=== PATIENT | female | born 1965 | race Caucasian/White ===

== ENCOUNTER 2016-10-29 14:26 | Emergency (ER) | payer OTHER ==
[2016-10-29 14:34] VITALS: BMI 21.4
--- NOTE | 2016-10-29 14:57 | ED PDOC ---
Arrival/HPI - General Chief Complaint: Medical Clearance Time Seen by Provider: 10/29/16 14:44 Historian: Patient - History of Present Illness Narrative History of Present Illness (Text): 10/29/16 14:59 51 year old female, aox4, pmh including chronic migraine, allergic to sulfa medication, bib for overdose 4 tablets of percocet 7.5/325 at home. Pt. stated that she has been having headache for the past 3 days, been taking percocets to controlled the headache, took total of 4 tablets today (2 tablets on 07:30am, another 2 tablets on 10:30am plus additional 1000mg of tylenol in between) and went to sleep on the cough, found by mother sleeping and waking up with people surrounding her. Pt. stated that she is not depress, not homicidal or suicidal ideation, no auditory or visual hallucinations. Pt. has a bottle of percocet 7.5/325 with 76 tablets which filled 6 days ago on 10/23/2016, 24 tablets shortage. Past Medical History - Provider Review Nursing Documentation Reviewed: Yes - Infectious Disease Hx of Infectious Diseases: None - Neurological Hx Migraine: Yes - Psychiatric Hx Substance Use: No Family/Social History - Physician Review Nursing Documentation Reviewed: Yes Family/Social History: Unknown Family HX Smoking Status: Never Smoked Hx Alcohol Use: No Hx Substance Use: No Allergies/Home Meds Allergies/Adverse Reactions: Allergies sulfamethoxazole [From Septra] Allergy (Verified 10/29/16 14:41) RASH trimethoprim [From Septra] Allergy (Verified 10/29/16 14:41) RASH Home Medications: Home Meds Medication Instructions Recorded Confirmed Oxycodone HCl/Acetaminophen 1 tab PO QID PRN 10/29/16 10/29/16 [Oxycodone-Acetaminophen 5-325] Rizatriptan Benzoate [Maxalt] 10 mg PO TID PRN 10/29/16 10/29/16 Topiramate [Topamax] 25 mg PO HS 10/29/16 10/29/16 Topiramate [Topamax] 50 mg PO DAILY 10/29/16 10/29/16 Review of Systems - Review of Systems Constitutional: absent: Fatigue, Fevers Eyes: absent: Vision Changes ENT: absent: Hearing Changes Respiratory: absent: SOB, Cough Cardiovascular: absent: Chest Pain Gastrointestinal: absent: Abdominal Pain, Diarrhea, Nausea, Vomiting Skin: absent: Rash, Pruritis, Skin Lesions Neurological: absent: Headache, Dizziness Psychiatric: absent: Anxiety, Depression, Suicidal Ideation Physical Exam Vital Signs Reviewed: Yes Vital Signs Temp Pulse Resp BP Pulse Ox 10/29/16 18:04 99 H 19 169/66 H 100 10/29/16 17:07 91 H 10/29/16 15:08 98.9 F 10/29/16 14:33 113 H 20 193/90 H 96 Blood Pressure: Hypertensive Pulse: Tachycardic Respiratory Rate: Normal Appearance: Positive for: Well-Appearing, Non-Toxic, Comfortable Pain Distress: None Mental Status: Positive for: Alert and Oriented X 3 - Systems Exam Head: Present: Atraumatic, Normocephalic. No: Tenderness, Contusion, Swelling, Ecchymosis, Abrasion, Laceration, Other Pupils: Present: PERRL, Pinpoint Extroacular Muscles: Present: EOMI Conjunctiva: Present: Normal Mouth: Present: Moist Mucous Membranes Neck: Present: Normal Range of Motion, Trachea Midline. No: MIDLINE TENDERNESS , Paraspinal Tenderness, Lymphadenopathy Respiratory/Chest: Present: Clear to Auscultation, Good Air Exchange. No: Respiratory Distress, Accessory Muscle Use Cardiovascular: Present: Regular Rate and Rhythm, Normal S1, S2. No: Murmurs Abdomen: Present: Normal Bowel Sounds. No: Tenderness, Distention, Peritoneal Signs Back: Present: Normal Inspection. No: CVA Tenderness, Midline Tenderness, Paraspinal Tenderness, Pain with Leg Raise, Decubitus Ulcer Upper Extremity: Present: Normal Inspection. No: Cyanosis, Edema Lower Extremity: Present: Normal Inspection. No: Edema Neurological: Present: GCS=15, Speech Normal, Motor Func Grossly Intact, Gait Normal, Memory Normal, Other (no focal neurological deficits. ) Skin: Present: Warm, Dry, Normal Color. No: Rashes Psychiatric: Present: Alert, Oriented x 3, Normal Insight, Normal Concentration Medical Decision Making ED Course and Treatment: 10/29/16 15:03 -labs/ua/uds -ekg -CT head -poison control -one on one -PES Anaise called and discussed, will come to evaluate -court monitor -observe and reassess 10/29/16 15:12 -EKG: NSR @ 88 BPM, no ST elevation or depression, no T wave inversion, prolonged QT -CT head: no acute findings -Poison control suggest labs -PES suggest labs for tylenol and LFT level -Labs show: show no acute findings except 10/29/16 15:59 -Acetaminophen noted to be 29 (total of 2300mg tylenol today, initial dose 07: 30am and last dose 10:30am), discussed with Dr. Fisher and discussed in detail including the patient is clear from psychiatric PES Karina, Dr. Fisher suggest to repeat the tylenol level now. -There is no indication of treatment with antidote at this time. 10/29/16 16:52 -Upon reevaluation, pt. is awake and alert, tylenol level from 29 to 17 now. -Pt. is clear from the psychiatric point of view. -poison control follow up for clearance and agreed to be discharge home. -Pt. is medically clear as well. I discussed with Dr. Fisher including the tachycardic which Dr. Fisher stated that this can be performed outpatient with marketing content coordinator follow up, and he suggest to discharge home. -Pt. is vitally stable, will discharge home. -Discharge home with education on stop taking percocets or tylenol within 24 hours, follow up with your own pmd and neurologist within 2 days, return to the ER for any new or worsening signs or symptoms. - Lab Interpretations Lab Results: 10/29/16 15:15 10/29/16 15:15 Lab Results 10/29/16 16:20: Acetaminophen 17.0 10/29/16 16:12: Urine Opiates Screen Positive H, Urine Methadone Screen Negative , Ur Barbiturates Screen Negative, Ur Phencyclidine Scrn Negative, Ur Amphetamines Screen Negative, U Benzodiazepines Scrn Negative, U Oth Cocaine Metabols Negative, U Cannabinoids Screen Negative 10/29/16 16:12: Urine Color Yellow, Urine Appearance Clear, Urine pH 6.0, Ur Specific [place] 1.025, Urine Protein Negative, Urine Glucose (UA) Negative, Urine Ketones Negative, Urine Blood Negative, Urine Nitrate Negative, Urine Bilirubin Negative, Urine Urobilinogen 0.2, Ur Leukocyte Esterase Negative 10/29/16 15:15: Alcohol, Quantitative < 10 10/29/16 15:15: Salicylates < 1 L, Acetaminophen 29.0 H, Valproic Acid < 10 L 10/29/16 15:15: Sodium 142, Potassium 3.6, Chloride 108 H, Carbon Dioxide 22, Anion Gap 16, BUN 17, Creatinine 0.9, Est GFR ( Amer) > 60, Est GFR (Non- Af Amer) > 60, Random Glucose 176 H, Calcium 8.3 L, Total Bilirubin 0.5, AST 35 , ALT 19, Alkaline Phosphatase 50, Total Protein 6.8, Albumin 4.1, Globulin 2.7 , Albumin/Globulin Ratio 1.5 10/29/16 15:15: WBC 13.6 H, RBC 3.86, Hgb 11.8 L, Hct 35.5 L, MCV 92.0, MCH 30.6 , MCHC 33.2, RDW 13.2, Plt Count 219, MPV 11.0, Gran % 71.9 H, Lymph % (Auto) 21.9 L, [place] % (Auto) 4.5, Eos % (Auto) 1.4 L, Baso % (Auto) 0.3, Gran # 9.78 H , Lymph # 3.0, [place] # 0.6, Eos # 0.2, Baso # 0.04 I have reviewed the lab results: Yes - RAD Interpretation Radiology Orders: 10/29/16 14:59 HEAD W/O CONTRAST [CT] Stat -CT head: no acute findings -Chest x-ray: Chemical Plant Worker: Radiologist - EKG Interpretation EKG Interpretation (Text): 10/29/16 15:11 NSR @ 88 BPM, no ST elevation or depression, no T wave inversion, prolonged QT Interpreted by ED Physician: Yes Type: 12 lead EKG - Medication Orders Current Medication Orders: Discontinued Medications Sodium Chloride (Sodium Chloride 0.9%) 1,000 mls @ 999 mls/hr IV .Q1H1M STA Stop: 10/29/16 15:58 Last Admin: 10/29/16 15:24 Dose: 999 mls/hr - PA / PAINTER [employer] / Resident Statement /DO has reviewed & agrees with the documentation as recorded. Disposition/Present on Arrival - Present on Arrival Any Indicators Present on Arrival: No History of DVT/PE: No History of Uncontrolled Diabetes: No Urinary Catheter: No History of Decub. Ulcer: No History Surgical Site Infection Following: None - Disposition Have Diagnosis and Disposition been Completed?: Yes Diagnosis: General medical examination Disposition: HOME/ ROUTINE Disposition Time: 16:58 Patient Plan: Discharge Condition: GOOD Additional Instructions: -Discharge home with education on stop taking percocets or tylenol within 24 hours, follow up with your own pmd and neurologist within 2 days, return to the ER for any new or worsening signs or symptoms. Referrals: PCP,NO [Primary Care Provider] - Follow up with primary Elle Barbosa MD [Staff Provider] - Follow up with primary Forms: [employer] (Danish), WORK NOTE
[2016-10-29] MEDS ORDERED: Sodium Chloride 0.9% 1,000 ML IV STA (14:58)
[2016-10-29 15:17] VITALS: TEMP 98.9
[2016-10-29 15:27] LABS: BASO # 0.04 K/mm3 (0.0-2.0); BASO % 0.3 % (0.0-3.0); EOS # 0.2 (0.0-0.7); EOS % 1.4 % (1.5-5.0); GRAN # 9.78 (1.4-6.5); GRAN % 71.9 % (50.0-68.0); HEMATOCRIT 35.5 % (36.0-48.0); LYMPH % 21.9 % (22.0-35.0); MEAN CORPUSCULAR HEMOGLOBIN 30.6 pg (25.0-35.0); MEAN CORPUSCULAR HGB CONC 33.2 g/dl (31.0-37.0); MONO # 0.6 (0.1-0.6); MONO % 4.5 % (1.0-6.0); RED CELL DISTRIBUTION WIDTH 13.2 % (11.5-14.5); WHITE BLOOD COUNT 13.6 10^3/ul (4.5-11.0)
[2016-10-29 15:44] LABS: ALB/GLOB RATIO 1.5 (1.1-1.8); ALKALINE PHOSPHATASE 50 U/L (38-126); ALT/SGPT 19 U/L (7-56); AST/SGOT 35 U/L (14-36); BILIRUBIN,TOTAL 0.5 mg/dL (0.2-1.3); BLOOD UREA NITROGEN 17 mg/dL (7-21); CALCIUM 8.3 mg/dL (8.4-10.5); CARBON DIOXIDE 22 mmol/L (21-33); CHLORIDE 108 mmol/L (98-107); GFR AFRICAN-AMERICAN > 60; GLUCOSE,RANDOM 176 mg/dL (70-110); POTASSIUM 3.6 mmol/L (3.6-5.0); SODIUM 142 mmol/L (132-148); TOTAL PROTEIN 6.8 g/dL (5.8-8.3)
--- NOTE | 2016-10-29 15:46 | CT ---
PROCEDURE: CT HEAD WITHOUT CONTRAST. HISTORY: headache x 3 days, found unconscious?? COMPARISON: None available. TECHNIQUE: Axial computed tomography images were obtained through the head/brain without intravenous contrast. Radiation dose: Total exam DLP = 690 mGy-cm. This CT exam was performed using one or more of the following dose reduction techniques: Automated exposure control, adjustment of the mA and/or kV according to patient size, and/or use of iterative reconstruction technique. FINDINGS: HEMORRHAGE: No intracranial hemorrhage. BRAIN: No mass effect or edema. No atrophy or chronic microvascular ischemic changes. VENTRICLES: Unremarkable. No hydrocephalus. CALVARIUM: Unremarkable. PARANASAL SINUSES: Unremarkable as visualized. No significant inflammatory changes. MASTOID AIR CELLS: Unremarkable as visualized. No inflammatory changes. OTHER FINDINGS: None. IMPRESSION: No acute findings
[2016-10-29 15:50] LABS: VALPROIC ACID < 10 ug/mL (50.0-100.0)
[2016-10-29 16:47] LABS: URINE BILIRUBIN NEGATIVE (NEGATIVE); URINE BLOOD NEGATIVE (NEGATIVE); URINE GLUCOSE (UA) NEGATIVE (NEGATIVE); URINE KETONE NEGATIVE (NEGATIVE); URINE LEUKOCYTE ESTERASE NEGATIVE Leu/uL (NEGATIVE); URINE PROTEIN NEGATIVE mg/dL (<30 mg/dL); URINE UROBILINOGEN 0.2 E.U./dL (<1 E.U./dL)
[2016-10-29 16:49] LABS: URINE APPEARANCE CLEAR (CLEAR); URINE COLOR YELLOW (YELLOW)
[2016-10-29 18:05] VITALS: BP 169/66; PULSE 99; RESP 19; O2SAT 100
--- NOTE | 2016-10-29 20:22 | CARD ---
APPROVED REPORT EKG Measurement Heart [id number] <Conclusion> Normal sinus rhythm Possible Left atrial enlargement Left ventricular hypertrophy Nonspecific ST and T wave abnormality Prolonged QT Abnormal ECG
== END 2016-10-29 18:20 | disposition home or self-care (01) ==
LOC: ED 14:26
DX: Z00.00 Encounter for general adult medical examination without abnormal findings (principal)
CPT/HCPCS: 70450; 80053; 80164; 80320; 80324; 80329; 80345; 80346; 80349; 80353; 80358; 80361; 81003; 83992; 85025; 93005; 99283; J7040

== ENCOUNTER 2017-11-27 19:56 | Inpatient (IN) | payer BC, OTHER ==
--- NOTE | 2017-11-27 20:20 | ED PDOC ---
Arrival/HPI - General Historian: Patient EM Caveat: Altered Mental Status - History of Present Illness Narrative History of Present Illness (Text): 11/27/17 20:14 Pt is a 52 yo F with pmhx of migraines who comes to the ED for R sided leg numbness and possible fall. She states that she woke up from a nap and is confused as to whether she woke up on the cricket coach or on the floor. She also states that she then tried to stand up but fell because her R leg gave out from under her. She states she does not recall hitting her head, but when she called over her mother for assistance to get up from fall the mother, her mother noted some blood on the R side of her head. Her mother called the EMS and she presented. She states she is still feeling weakness in the R leg, and is having R groin pain. Pt is confused as to exactly happened and when. Time/Duration: Prior to Arrival Symptom Onset: Sudden Symptom Course: Unchanged <Adriana Lopez - Last Filed: 11/28/17 05:25> - Critical Care Critical Care Minutes: 45 minutes <Wilton Hurst - Last Filed: 12/06/17 12:18> - General Time Seen by Provider: 11/27/17 19:59 Past Medical History - Provider Review Nursing Documentation Reviewed: Yes - Infectious Disease Hx of Infectious Diseases: None - Cardiac Hx Cardiac Disorders: No Hx Hypertension: No - Pulmonary Hx Tuberculosis: No - Neurological Hx Migraine: Yes - Hematological/Oncological Hx Cancer: No - Genitourinary/Gynecological Hx Sexually Transmitted Diseases: No - Psychiatric Hx Substance Use: No <Adriana Lopez - Last Filed: 11/28/17 05:25> - Provider Review Nursing Documentation Reviewed: Yes <Wilton Hurst - Last Filed: 12/06/17 12:18> Family/Social History - Physician Review Nursing Documentation Reviewed: Yes Family/Social History: No Known Family HX Smoking Status: Never Smoked Hx Alcohol Use: No Hx Substance Use: No <Adriana Lopez - Last Filed: 11/28/17 05:25> - Physician Review Nursing Documentation Reviewed: Yes Family/Social History: No Known Family HX <Wilton Hurst - Last Filed: 12/06/17 12:18> Allergies/Home Meds <Adriana Lopez - Last Filed: 11/28/17 05:25> <Wilton Hurst - Last Filed: 12/06/17 12:18> Allergies/Adverse Reactions: Allergies sulfamethoxazole [From ] Allergy (Verified 10/29/16 14:41) RASH trimethoprim [From Octra] Allergy (Verified 10/29/16 14:41) RASH Home Medications: Home Meds Medication Instructions Recorded Confirmed RX: Oxycodone HCl/Acetaminophen 1 tab PO QID PRN 10/29/16 11/28/17 [Oxycodone-Acetaminophen 5-325] RX: Topiramate [Topamax] 100 mg PO HS 10/29/16 12/03/17 RX: Amitriptyline [Elavil] 20 mg PO HS 11/28/17 12/03/17 RX: Naratriptan HCl [Amerge] 2.5 mg PO DAILY PRN 11/28/17 12/03/17 Review of Systems - Physician Review All systems were reviewed & negative as marked: Yes - Review of Systems Systems not reviewed;Unavailable: Altered Mental Status <Adriana Lopez - Last Filed: 11/28/17 05:25> Physical Exam Vital Signs Reviewed: Yes Vital Signs Pulse Resp BP Pulse Ox 11/27/17 19:57 94 H 18 126/67 97 Temperature: Afebrile Blood Pressure: Normal Pulse: Regular Respiratory Rate: Normal Appearance: Positive for: Well-Appearing, Non-Toxic, Comfortable Pain Distress: None Mental Status: Positive for: Alert and Oriented X 3 - Systems Exam Head: Present: Atraumatic, Normocephalic Pupils: Present: PERRL Extroacular Muscles: Present: EOMI Conjunctiva: Present: Normal Ears: Present: NORMAL TM Mouth: Present: Moist Mucous Membranes Pharnyx: Present: Normal Neck: Present: Normal Range of Motion Respiratory/Chest: Present: Clear to Auscultation, Good Air Exchange. No: Respiratory Distress, Accessory Muscle Use Cardiovascular: Present: Regular Rate and Rhythm, Normal S1, S2. No: Murmurs Abdomen: No: Tenderness, Distention, Peritoneal Signs Back: Present: Normal Inspection Upper Extremity: Present: Normal Inspection. No: Cyanosis, Edema Lower Extremity: Present: Normal Inspection, NORMAL PULSES. No: Edema, CALF TENDERNESS, Maryellen's Sign, Tenderness, Swelling Neurological: Present: GCS=15, CN II-XII Intact, Speech Normal, Normal Sensory Function, Norm Deep Tendon Reflexes, Other (decreased strength right lower leg ? muscular) Skin: Present: Warm, Dry, Normal Color. No: Rashes Psychiatric: Present: Alert <Wilton Hurst - Last Filed: 12/06/17 12:18> Medical Decision Making ED Course and Treatment: 11/27/17 20:20 Pt is a 52 yo F with pmhx detailed above who comes in for R sided numbness and possible fall. - CT head - Discussed case with neurologist Dr. Jesus who states that the pt is not a candidate for TPA at this time because of low stroke risk using NIHSS and possibility of complicated migraine. Awaiting CT result 11/27/17 23:39 - CT head was reported by radiologist to have no acute intracranial abnormality - CK noted to be 35,000. Will give bolus of fluid - K+ noted to be elevated, began pt on insulin, D50, albuterol, ca gluconate, and kayexalate - Spoke to Dr. Mcgill media sales representative who accepted pt to ICU 11/27/17 23:41 - RAD Interpretation Narrative RAD Interpretations (Text): 11/27/17 20:35 Radiologist Report: No acute finding. 11/27/17 20:49 CXR: No acute process Manager Perioperative: Radiologist - EKG Interpretation EKG Interpretation (Text): 11/27/17 20:32 NSR @ 94 bpm [address] enlargement No ST-T wave changes Interpreted by ED Physician: Yes Type: 12 lead EKG <Adriana Lopez - Last Filed: 11/28/17 05:25> ED Course and Treatment: 11/27/17 21:02 Patient is a 52 year old female presenting to Emergency Department complaining of right sided numbness. In agreement with resident note. Patient was seen and evaluated with resident, came up with plan and treatment together. I have discussed the case with Dr. Jesus, management was outlined in full as referenced in the resident's note. 11/27/17 22:[address] Mcgill, media sales representative, who will evaluate patient for possible unit admit. 11/27/17 23:[address] Wyatt, who is aware and agrees with the Emergency Department management plan to admit patient to the unit and requested Dr. Ji, renal, and Dr. Jesus, neuro for consult. 11/28/17 00:16 ICU resident was called for Dr. Mcgill to evaluate patient in the Emergency room. - RAD Interpretation Radiology Orders: 11/27/17 20:13 HEAD W/O (CODE STROKE) [CT] Stat CHEST ONE VIEW [RAD] Stat - Medication Orders Current Medication Orders: Sodium Chloride (Sodium Chloride 0.9%) 1,000 mls @ 100 mls/hr IV .Q10H ADY Discontinued Medications Aspirin (Aspirin) 325 mg PO STAT STA Stop: 11/27/17 20:49 <Wilton Hurst - Last Filed: 12/06/17 12:18> NIHSS Scale ([place]) Time Performed: 20:10 - How Severe is the Stoke Baseline Level of Consciousness: 0=Alert LOC to Questions: 0=Both comments correct LOC to commands: 0=Obeys both correctly Best Gaze: 0=Normal Visual: 0=No visual loss Facial: 0=Normal Motor Arm - Left: 0=No drift Motor Arm - Right: 0=No drift Motor Leg - Left: 0=No drift Motor Leg - Right: 2=Falls before 5 sec Limb Ataxia: 0=Absent Sensory: 0=Normal Best Language: 0=No aphasia Dysarthia: 0=Normal articulation Extinction & Inattention (Neglect): 0=Normal, no object Score: 2 Risk Level: Minor Stroke Risk <Adriana Lopez - Last Filed: 11/28/17 05:25> rTPA Inclusion/Exclusion - Refusal of Treatment Patient Refused Treatment: No - Inclusion Criteria for Altepase Patient is 18 years or Older: Yes The Clinical Diagnosis of Ischemic Stroke That is Causing a Potentially Disabling Neurological Deficit: No Time of Onset is Well Established to be Less Than 270 Minute Before Treatment Would Begin: Yes Risk/Benefit Discussed With Patient/Family Member Present: Yes - Exclusion Criteria for Altepase Uncontrolled Hypertension at Time of Treatment (Systolic BP above 185 or Diastolic BP above 110 mmHg): No Active Internal Bleeding: No Known Bleeding Diathesis Including but Not Limited to: Platelets Below 1 00,000/mm,PTT Above 40 sec After Heparin Use, Current Use of Oral Anitcoagulant With INR Greater Than 1.7 or PT Greater Than 15 secs: No Evidence of an Intracranial Hemorrhage: No Evidence of Major Acute Infarct With Signs Greater Than 1/3 MCA Territory: No Suspicion of Subarachnoid Hemorrhage on Pretreatment Evaluation Even if CT Head Negative For Hemorrhage: No - Warning to TPA With Conditions Following Conditions Weighed Against Anticipated Benefit: Yes Condition: Stroke Serevity Too Mild <Adwoa Lopezd - Last Filed: 11/28/17 05:25> - Inclusion Criteria for Altepase Patient is 18 years or Older: Yes <ArisWilton - Last Filed: 12/06/17 12:18> - PA / GOLF CART REPAIRER / Resident Statement / has reviewed & agrees with the documentation as recorded. MD/DO has examined the patient and agrees with the treatment plan. - Scribe Statement The provider has reviewed the documentation as recorded by the Hao Flores All medical record entries made by the Nobleibyamil were at my direction and personally dictated by me. I have reviewed the chart and agree that the record accurately reflects my personal performance of the history, physical exam, medical decision making, and the department course for this patient. I have also personally directed, reviewed, and agree with the discharge instructions and disposition. <ArisWilton - Last Filed: 12/06/17 12:18> Disposition/Present on Arrival - Present on Arrival Any Indicators Present on Arrival: No History of DVT/PE: No History of Uncontrolled Diabetes: No Urinary Catheter: No History of Decub. Ulcer: No History Surgical Site Infection Following: None - Disposition Have Diagnosis and Disposition been Completed?: Yes Disposition Time: 23:39 Patient Plan: Admission, ICU <Sae Lopezmad - Last Filed: 11/28/17 05:25> - Present on Arrival Any Indicators Present on Arrival: No History of DVT/PE: No History of Uncontrolled Diabetes: No Urinary Catheter: No History of Decub. Ulcer: No History Surgical Site Infection Following: None - Disposition Have Diagnosis and Disposition been Completed?: Yes <ArisWilton - Last Filed: 12/06/17 12:18> - Disposition Diagnosis: Rhabdomyolysis, Acute kidney failure, Renal insufficiency Disposition: HOSPITALIZED Condition: IMPROVED
[2017-11-27 21:20] LABS: BASO # 0.01 K/mm3 (0.0-2.0); BASO % 0.1 % (0.0-3.0); GRAN # 15.63 (1.4-6.5); HEMOGLOBIN 14.7 g/dL (12.0-16.0); LYMPH # 0.7 (1.2-3.4); LYMPH % 3.8 % (22.0-35.0); MEAN CELL VOLUME 92.9 fl (80.0-105.0); MEAN CORPUSCULAR HEMOGLOBIN 30.5 pg (25.0-35.0); MEAN CORPUSCULAR HGB CONC 32.8 g/dl (31.0-37.0); MEAN PLATELET VOLUME 11.5 fl (7.0-11.0); MONO # 1.6 (0.1-0.6); MONO % 9.1 % (1.0-6.0); PLATELET COUNT 262 10^3/uL (120.0-450.0); RBC 4.82 10^6/uL (3.5-6.1); RED CELL DISTRIBUTION WIDTH 12.5 % (11.5-14.5)
[2017-11-27] MEDS: Sodium Chloride 0.9% 1,000 ML IV SCH (21:30)
[2017-11-27 21:35] LABS: TROPONIN I 0.1 ng/mL
[2017-11-27 21:52] LABS: INR 0.88; PARTIAL THROMBOPLASTIN TIME 26.1 Seconds (25.1-36.5)
[2017-11-27 22:29] LABS: ALB/GLOB RATIO 1.5 (1.1-1.8); ALBUMIN 5.3 g/dL (3.0-4.8); CALCIUM 9.3 mg/dL (8.4-10.5)
[2017-11-27] MEDS ORDERED: Dextrose 50% SYRINGE Inj (50 ml) IVP STA (22:35)
[2017-11-27] MEDS ORDERED: Albuterol 0.5% Inhal Sol (2.5 mg/0.5 ml) UD IH STA (22:36)
[2017-11-27] MEDS ORDERED: Insulin Regular 1 UNITS/0.01 ML ML IVP ONE (22:36)
[2017-11-27] MEDS ORDERED: Sodium Bicarbonate (8.4%) 50 Meq Syringe IVP ONE ×2 (22:36→23:10)
[2017-11-27] MEDS ORDERED: Sodium Chloride 0.9% 1,000 ML IV STA ×2 (22:39→23:36)
[2017-11-27 22:42] LABS: BAND 4 % (0-2); LYMPHOCYTE 3 % (22.0-35.0); MONOCYTE 7 % (1.0-6.0); NEUTROPHIL 86 % (50.0-70.0); PLATELET ESTIMATE NORMAL (NORMAL)
[2017-11-27 22:43] LABS: HYPOCHROMIA 2+; ROULEAU 3+; TOXIC GRANULATION 2+
[2017-11-27] MEDS ORDERED: Sod Polystyrene Sulf 15 gm/60 ml Susp PO STA (23:01)
[2017-11-27 23:52] LABS: VENOUS BLOOD GAS BASE EXCESS -3.2 mmol/L (0.0-2.0); VENOUS BLOOD GAS PO2 21 mm/Hg (30-55); VENOUS BLOOD PH 7.21 (7.32-7.43)
[2017-11-27 23:59] LABS: CK MB% 0.4 % (2.5-3.0)
[2017-11-28] MEDS ORDERED: cefTRIAXone 1 gm 1 GM/100 ML BAG IVPB ONE (00:02)
--- NOTE | 2017-11-28 00:55 | CP.PCM.HP ---
<Dex Mims - Last Filed: 11/28/17 01:22> History of Present Illness - History of Present Illness History of Present Illness: PGY-2 medicine H&P for Dr Mcgill Mrs Joe is a 52 year old female with a PMHx of migraines who presented to the ED because she noticed acute right leg weakness and numbness. Additionally she complained of right groin pain. She stated she went for a jog a few hours prior to onset (she ran 3 miles) and came home and then took a nap on her couch. When she woke up she fell to the ground as her right leg "gave out". This is when she noticed the symptoms and alerted her mother who called EMS. She denied other focal deficits, dysarthria, paresthesia elsewhere. She denied feeling lightheaded. A code stroke was called in the ED and patient's NIHSS was 2. PMHx: migraines Home Meds: topiramate 50mg po qd, topiramate 25mg po hs, maxalt 10mg po tid, percocet 5/325 1 tab po qid Allergies: sulfamethoxazole and trimethorpim SocialHx: Denies tobacco use and hx, denies alcohol use, denies illicit drugs FamHx: denies fam hx Present on Admission - Present on Admission Any Indicators Present on Admission: No Review of Systems - Constitutional Constitutional: absent: Chills, Fever - EENT Eyes: absent: Blurred Vision - Cardiovascular Cardiovascular: absent: Chest Pain - Respiratory Respiratory: absent: Dyspnea, Wheezing - Gastrointestinal Gastrointestinal: absent: Abdominal Pain, Bloating - Genitourinary Genitourinary: absent: Dysuria - Musculoskeletal Musculoskeletal: Abnormal Gait, Muscle Weakness, Numbness, Tingling. absent: Back Pain - Integumentary Integumentary: absent: Bleeding Lesions - Neurological Neurological: Numbness, Focal Weakness, Paresthesias. absent: Behavioral Changes, Convulsions, Disequilibrium, Dizziness, Headaches, Radicular Pain, Restless Legs Past Patient History - Infectious Disease Hx of Infectious Diseases: None - Past Social History Smoking Status: Never Smoked - CARDIAC Hx Cardiac Disorders: No Hx Hypertension: No - PULMONARY Hx Tuberculosis: No - NEUROLOGICAL Hx Migraine: Yes - HEMATOLOGICAL/ONCOLOGICAL Hx Cancer: No - GENITOURINARY/GYNECOLOGICAL Hx Sexually Transmitted Disorders: No - PSYCHIATRIC Hx Substance Use: No Meds Allergies/Adverse Reactions: Allergies Allergy/AdvReac Type Severity Reaction Status Date / Time sulfamethoxazole Allergy RASH Verified 10/29/16 14:41 [From ] trimethoprim [From ] Allergy RASH Verified 10/29/16 14:41 Physical Exam - Constitutional Appears: Well, No Acute Distress, Older Than Stated Age - Head Exam Head Exam: ATRAUMATIC, NORMAL INSPECTION - Eye Exam Eye Exam: EOMI, Normal appearance, PERRL - ENT Exam ENT Exam: Mucous Membranes Moist - Neck Exam Neck exam: Positive for: Normal Inspection. Negative for: Tenderness - Respiratory Exam Respiratory Exam: Clear to Auscultation Bilateral, NORMAL BREATHING PATTERN. absent: Rales, Rhonchi, Wheezes - Cardiovascular Exam Cardiovascular Exam: Tachycardia, REGULAR RHYTHM, +S1, +S2. absent: JVD, Systolic Murmur - GI/Abdominal Exam GI & Abdominal Exam: Normal Bowel Sounds. absent: Tenderness - Extremities Exam Extremities exam: Positive for: normal capillary refill, normal inspection, tenderness, pedal pulses present. Negative for: calf tenderness, pedal edema - Neurological Exam Neurological exam: Alert, CN II-XII Intact, Oriented x3, Reflexes Normal Additional comments: right leg motor strength 1/5 sensation decreased in right leg otherwise neuro exam is normal - Skin Skin Exam: Intact, Normal Color, Warm Results - Vital Signs Recent Vital Signs: Last Vital Signs Temp 98.0 F 11/27/17 21:57 Pulse 94 H 11/27/17 21:57 Resp 18 11/27/17 21:57 BP 138/54 L 11/27/17 21:57 Pulse Ox 100 11/27/17 21:57 - Labs Result Diagrams: 11/27/17 20:30 11/27/17 20:30 Labs: Laboratory Results - last 24 hr 11/27/17 11/27/17 11/27/17 20:30 20:30 20:30 WBC 18.0 H D RBC 4.82 Hgb 14.7 D Hct 44.8 MCV 92.9 MCH 30.5 MCHC 32.8 RDW 12.5 Plt Count 262 MPV 11.5 H Gran % 87.0 H Lymph % (Auto) 3.8 L Pitt % (Auto) 9.1 H Eos % (Auto) 0.0 L Baso % (Auto) 0.1 Gran # 15.63 H Lymph # (Auto) 0.7 L Pitt # (Auto) 1.6 H Eos # (Auto) 0.0 Baso # (Auto) 0.01 Neutrophils % (Manual) 86 H Band Neutrophils % 4 H Lymphocytes % (Manual) 3 L Monocytes % (Manual) 7 H Toxic Granulation 2+ Platelet Evaluation Normal Hypochromasia 2+ Rouleaux 3+ PT 10.0 INR 0.88 APTT 26.1 pO2 VBG pH VBG pCO2 VBG HCO3 VBG Total CO2 VBG O2 Sat (Calc) VBG Base Excess VBG Potassium Glucose Lactate FiO2 Sodium 141 Potassium 7.8 H* D Chloride 103 Carbon Dioxide 21 Anion Gap 25 H BUN 40 H Creatinine 2.6 H Est GFR ( Amer) 23 Est GFR (Non-Af Amer) 19 POC Glucose (mg/dL) Random Glucose 69 L Calcium 9.3 Total Bilirubin 0.5 AST 417 H D ALT 85 H Alkaline Phosphatase 111 Lactate Dehydrogenase Total Creatine Kinase CK-MB (CK-2) CK-MB (CK-2) % Troponin I 0.10 Total Protein 8.8 H Albumin 5.3 H Globulin 3.5 Albumin/Globulin Ratio 1.5 Triglycerides 92 Cholesterol 268 H LDL Cholesterol Direct 95 HDL Cholesterol 128 H Venous Blood Potassium Blood Type Blood Type Confirm Antibody Screen BBK History Checked 11/27/17 11/27/17 11/27/17 20:30 22:37 23:00 WBC RBC Hgb Hct MCV MCH MCHC RDW Plt Count MPV Gran % Lymph % (Auto) Pitt % (Auto) Eos % (Auto) Baso % (Auto) Gran # Lymph # (Auto) Pitt # (Auto) Eos # (Auto) Baso # (Auto) Neutrophils % (Manual) Band Neutrophils % Lymphocytes % (Manual) Monocytes % (Manual) Toxic Granulation Platelet Evaluation Hypochromasia Rouleaux PT INR APTT pO2 VBG pH VBG pCO2 VBG HCO3 VBG Total CO2 VBG O2 Sat (Calc) VBG Base Excess VBG Potassium Glucose Lactate FiO2 Sodium Potassium Chloride Carbon Dioxide Anion Gap BUN Creatinine Est GFR ( Amer) Est GFR (Non-Af Amer) POC Glucose (mg/dL) Random Glucose Calcium Total Bilirubin AST ALT Alkaline Phosphatase Lactate Dehydrogenase 1909 H Total Creatine Kinase 27945 H CK-MB (CK-2) 125.0 H CK-MB (CK-2) % 0.4 L Troponin I Total Protein Albumin Globulin Albumin/Globulin Ratio Triglycerides Cholesterol LDL Cholesterol Direct HDL Cholesterol Venous Blood Potassium Blood Type O NEGATIVE Blood Type Confirm O NEGATIVE Antibody Screen Negative BBK History Checked No verified bt 11/27/17 11/28/17 23:40 00:16 WBC RBC Hgb Hct MCV MCH MCHC RDW Plt Count MPV Gran % Lymph % (Auto) Pitt % (Auto) Eos % (Auto) Baso % (Auto) Gran # Lymph # (Auto) Pitt # (Auto) Eos # (Auto) Baso # (Auto) Neutrophils % (Manual) Band Neutrophils % Lymphocytes % (Manual) Monocytes % (Manual) Toxic Granulation Platelet Evaluation Hypochromasia Rouleaux PT INR APTT pO2 21 L VBG pH 7.21 L VBG pCO2 65.0 H VBG HCO3 26.0 VBG Total CO2 28.0 VBG O2 Sat (Calc) 28.9 L VBG Base Excess -3.2 L VBG Potassium 4.6 Glucose 110 H Lactate 2.9 H FiO2 21.0 Sodium 141.0 Potassium Chloride 105.0 Carbon Dioxide Anion Gap BUN Creatinine Est GFR ( Amer) Est GFR (Non-Af Amer) POC Glucose (mg/dL) 79 Random Glucose Calcium Total Bilirubin AST ALT Alkaline Phosphatase Lactate Dehydrogenase Total Creatine Kinase CK-MB (CK-2) CK-MB (CK-2) % Troponin I Total Protein Albumin Globulin Albumin/Globulin Ratio Triglycerides Cholesterol LDL Cholesterol Direct HDL Cholesterol Venous Blood Potassium 4.6 Blood Type Blood Type Confirm Antibody Screen BBK History Checked Assessment & Plan - Assessment and Plan (Free Text) Plan: Mrs Joe is a 52 year old female with a PMHx of migraines who presented to the ED because she noticed acute right leg weakness and numbness: Rhabdomyolysis -patient went jogging 3 miles prior to presentation; denied fall or trauma -consult superintendent stations, Dr Ji -total creatine kinase on admission: 89776 -trend creatine kinase for next 3 days -f/u uds -2L NS given in ED -NS 100cc/hr Right Leg Weakness -unlikely related to CVA, more likely musculoskelatal in etiology, however will get neurology input -consult neurologist, Dr Jesus -NIHSS was 2 on admission; aspirin 325mg po was given in ED -CT head preliminary read shows no acute intracranial abnormality -MRI w/o contrast of right thigh to rule out tendon tear Elevated LFTs -AST/ALT on admission: 417/85 -f/u alcohol level -f/u hepatitis panel -f/u uds GAURAV -possibly 2/2 to rhabdomyolysis -consult superintendent stations, Dr Ji -BUN/Cr on admission: 40/2.6 -f/u [id number] Hyperkalemia -2/2 to muscle breakdown -K+ on admission: 7.8 -Insulin + Dextrose 1 amp given in ED -Kayexalate 30g given in ED -Calcium gluconate given in ED -Albuterol 0.5% 15mg ih given in ED -f/u ekg Leukocytosis -unsure of etiology at this point, could be stress response -wbc on admission: 18 -ceftriaxone 1g ivp given in ED -f/u blood cx, urine cx -f/u cxr official read Chronic Migraines -continue home med topiramate 50mg po qd -continue home med rizatriptan 10mg po tid prn PPX -heparin 5000u sc q8h -scd's contraindicated -heart healthy diet <Yifan Mcgill - Last Filed: 11/28/17 03:11> Results - Vital Signs Recent Vital Signs: Last Vital Signs Temp 98.0 F 11/27/17 21:57 Pulse 94 H 11/28/17 01:34 Resp 16 11/28/17 01:34 BP 142/90 11/28/17 01:34 Pulse Ox 94 L 11/28/17 01:34 - Labs Result Diagrams: 11/27/17 20:30 11/27/17 20:30 Labs: Laboratory Results - last 24 hr 11/27/17 11/27/17 11/27/17 20:30 20:30 20:30 WBC 18.0 H D RBC 4.82 Hgb 14.7 D Hct 44.8 MCV 92.9 MCH 30.5 MCHC 32.8 RDW 12.5 Plt Count 262 MPV 11.5 H Gran % 87.0 H Lymph % (Auto) 3.8 L Pitt % (Auto) 9.1 H Eos % (Auto) 0.0 L Baso % (Auto) 0.1 Gran # 15.63 H Lymph # (Auto) 0.7 L Pitt # (Auto) 1.6 H Eos # (Auto) 0.0 Baso # (Auto) 0.01 Neutrophils % (Manual) 86 H Band Neutrophils % 4 H Lymphocytes % (Manual) 3 L Monocytes % (Manual) 7 H Toxic Granulation 2+ Platelet Evaluation Normal Hypochromasia 2+ Rouleaux 3+ PT 10.0 INR 0.88 APTT 26.1 pO2 VBG pH VBG pCO2 VBG HCO3 VBG Total CO2 VBG O2 Sat (Calc) VBG Base Excess VBG Potassium Glucose Lactate FiO2 Sodium 141 Potassium 7.8 H* D Chloride 103 Carbon Dioxide 21 Anion Gap 25 H BUN 40 H Creatinine 2.6 H Est GFR ( Amer) 23 Est GFR (Non-Af Amer) 19 POC Glucose (mg/dL) Random Glucose 69 L Calcium 9.3 Total Bilirubin 0.5 AST 417 H D ALT 85 H Alkaline Phosphatase 111 Lactate Dehydrogenase Total Creatine Kinase CK-MB (CK-2) CK-MB (CK-2) % Troponin I 0.10 Total Protein 8.8 H Albumin 5.3 H Globulin 3.5 Albumin/Globulin Ratio 1.5 Triglycerides 92 Cholesterol 268 H LDL Cholesterol Direct 95 HDL Cholesterol 128 H Venous Blood Potassium Alcohol, Quantitative Blood Type Blood Type Confirm Antibody Screen BBK History Checked 11/27/17 11/27/17 11/27/17 20:30 20:52 22:37 WBC RBC Hgb Hct MCV MCH MCHC RDW Plt Count MPV Gran % Lymph % (Auto) Pitt % (Auto) Eos % (Auto) Baso % (Auto) Gran # Lymph # (Auto) Pitt # (Auto) Eos # (Auto) Baso # (Auto) Neutrophils % (Manual) Band Neutrophils % Lymphocytes % (Manual) Monocytes % (Manual) Toxic Granulation Platelet Evaluation Hypochromasia Rouleaux PT INR APTT pO2 VBG pH VBG pCO2 VBG HCO3 VBG Total CO2 VBG O2 Sat (Calc) VBG Base Excess VBG Potassium Glucose Lactate FiO2 Sodium Potassium Chloride Carbon Dioxide Anion Gap BUN Creatinine Est GFR ( Amer) Est GFR (Non-Af Amer) POC Glucose (mg/dL) Random Glucose Calcium Total Bilirubin AST ALT Alkaline Phosphatase Lactate Dehydrogenase 1909 H Total Creatine Kinase 03689 H CK-MB (CK-2) 125.0 H CK-MB (CK-2) % 0.4 L Troponin I Total Protein Albumin Globulin Albumin/Globulin Ratio Triglycerides Cholesterol LDL Cholesterol Direct HDL Cholesterol Venous Blood Potassium Alcohol, Quantitative < 10 Blood Type O NEGATIVE Blood Type Confirm Antibody Screen Negative BBK History Checked No verified bt 11/27/17 11/27/17 11/28/17 23:00 23:40 00:16 WBC RBC Hgb Hct MCV MCH MCHC RDW Plt Count MPV Gran % Lymph % (Auto) Pitt % (Auto) Eos % (Auto) Baso % (Auto) Gran # Lymph # (Auto) Pitt # (Auto) Eos # (Auto) Baso # (Auto) Neutrophils % (Manual) Band Neutrophils % Lymphocytes % (Manual) Monocytes % (Manual) Toxic Granulation Platelet Evaluation Hypochromasia Rouleaux PT INR APTT pO2 21 L VBG pH 7.21 L VBG pCO2 65.0 H VBG HCO3 26.0 VBG Total CO2 28.0 VBG O2 Sat (Calc) 28.9 L VBG Base Excess -3.2 L VBG Potassium 4.6 Glucose 110 H Lactate 2.9 H FiO2 21.0 Sodium 141.0 Potassium Chloride 105.0 Carbon Dioxide Anion Gap BUN Creatinine Est GFR ( Amer) Est GFR (Non-Af Amer) POC Glucose (mg/dL) 79 Random Glucose Calcium Total Bilirubin AST ALT Alkaline Phosphatase Lactate Dehydrogenase Total Creatine Kinase CK-MB (CK-2) CK-MB (CK-2) % Troponin I Total Protein Albumin Globulin Albumin/Globulin Ratio Triglycerides Cholesterol LDL Cholesterol Direct HDL Cholesterol Venous Blood Potassium 4.6 Alcohol, Quantitative Blood Type Blood Type Confirm O NEGATIVE Antibody Screen BBK History Checked Attending/Attestation - Attestation I have personally seen and examined this patient.: Yes I have fully participated in the care of the patient.: Yes I have reviewed all pertinent clinical information: Yes
[2017-11-28] MEDS ORDERED: RIZATRIPTAN BENZOATE 10 MG PO PRN ×2 (01:30→08:14)
[2017-11-28 06:03] LABS: BASO # 0.01 K/mm3 (0.0-2.0); BASO % 0.1 % (0.0-3.0); GRAN # 12.33 (1.4-6.5); GRAN % 85.1 % (50.0-68.0); HEMOGLOBIN 14.7 g/dL (12.0-16.0); LYMPH # 1.1 (1.2-3.4); LYMPH % 7.8 % (22.0-35.0); MEAN CORPUSCULAR HEMOGLOBIN 30.2 pg (25.0-35.0); MEAN CORPUSCULAR HGB CONC 33.6 g/dl (31.0-37.0); MEAN PLATELET VOLUME 11.4 fl (7.0-11.0); RBC 4.86 10^6/uL (3.5-6.1); RED CELL DISTRIBUTION WIDTH 12.6 % (11.5-14.5); WHITE BLOOD COUNT 14.5 10^3/ul (4.5-11.0)
[2017-11-28 06:09] LABS: MEAN CELL VOLUME 89.9 fl (80.0-105.0)
[2017-11-28 07:00] LABS: ALB/GLOB RATIO 1.4 (1.1-1.8); CALCIUM 8.5 mg/dL (8.4-10.5)
[2017-11-28 07:44] LABS: VENOUS BLOOD GAS PO2 186 mm/Hg (30-55)
--- NOTE | 2017-11-28 08:55 | CT ---
Date of service: 11/27/2017 PROCEDURE: CT HEAD WITHOUT CONTRAST. HISTORY: Code Stroke COMPARISON: 10/29/2016 TECHNIQUE: Axial computed tomography images were obtained through the head/brain without intravenous contrast. Radiation dose: Total exam DLP = 958.04 mGy-cm. This CT exam was performed using one or more of the following dose reduction techniques: Automated exposure control, adjustment of the mA and/or kV according to patient size, and/or use of iterative reconstruction technique. FINDINGS: HEMORRHAGE: No intracranial hemorrhage. BRAIN: No mass effect or edema. No atrophy or chronic microvascular ischemic changes. VENTRICLES: Unremarkable. No hydrocephalus. CALVARIUM: Unremarkable. PARANASAL SINUSES: Small right maxillary sinus with chronic sinusitis. Possibly posttraumatic. MASTOID AIR CELLS: Unremarkable as visualized. No inflammatory changes. OTHER FINDINGS: None. IMPRESSION: No intracranial mass, hemorrhage or evidence of acute infarct. The preliminary findings for this examination were reported by [facility] at 11/27/2017 at 8:33 p.m.. There is concurrence of this report with the preliminary findings.
[2017-11-28 09:06] LABS: CK MB% 0.4 % (2.5-3.0)
--- NOTE | 2017-11-28 09:42 | RAD ---
Date of service: 11/27/2017 PROCEDURE: CHEST RADIOGRAPH, 1 VIEW HISTORY: Code Stroke COMPARISON: None available. FINDINGS: LUNGS: Clear. PLEURA: No pneumothorax or pleural fluid seen. CARDIOVASCULAR: Normal. OSSEOUS STRUCTURES: No significant abnormalities. VISUALIZED UPPER ABDOMEN: Normal. OTHER FINDINGS: None. IMPRESSION: No active disease.
[2017-11-28] MEDS ORDERED: Oxycodone/Acetaminophen 5/325 mg Tab PO PRN (09:43)
--- NOTE | 2017-11-28 09:43 | CP.PCM.CON ---
<Sarah Jeong - Last Filed: 11/28/17 16:40> History of Present Illness - History of Present Illness History of Present Illness: Sarah Jeong, PGY2, Neurology Consult Note for Dr. Jesus: Reason for consult: r/o CVA CC: right LE weakness/numbness 52 year old female, referred by Dr Hurst, with PMH migraines, presents for right lower extremity weakness that started 12 PM yesterday afternoon. Pt went for a 2 mile run Tuesday, came home and took a nap on her couch. When she woke up 2-3 hours later and tried to stand up, she says that her right leg gave out and she fell to the ground. She hit her head and L knee, does not know if she lost consciousness or how long she was down, but pt believes it was less than 1 hour between falling and getting to ER. Pt runs regularly, last run on Tuesday, never had similar symptoms before, denies injury or trauma. Denies other focal deficits, dysarthria, paresthesia elsewhere, lightheadedness. Code stroke was called in ED; NIHSS was 2, not tPA candidate. Head CT negative. At the time of my exam, she complains of R groin pain and R thigh swelling, reports slight improvement in initial right leg weakness. States that her numbness is now limited to her right foot. Denies urinary/bowel incontinence, saddle anesthesia, back pain/injury, fevers, chills, dysuria. States that she feels the urge to urinate, however, has been holding as she has to use the bedpan. patient then urinated. 12-point ROS obtained and negative, except as per HPI. PMH: migraines PSH: fibroid removal Home Meds: Topiramate 50 daily + 25 HS; Maxalt 10 TID; Percocet 5/325 QID Allergy: Sulfamethoxazole, Trimethoprim Family Hx: denies Social: denies tobacco, alcohol, and drug use Review of Systems - Review of Systems All systems: reviewed and no additional remarkable complaints except Review of Systems: as per HPI Past Patient History - Infectious Disease Hx of Infectious Diseases: None - Past Social History Smoking Status: Never Smoked - CARDIAC Hx Cardiac Disorders: No Hx Hypertension: No - PULMONARY Hx Tuberculosis: No - NEUROLOGICAL Hx Migraine: Yes - HEMATOLOGICAL/ONCOLOGICAL Hx Cancer: No - GENITOURINARY/GYNECOLOGICAL Hx Sexually Transmitted Disorders: No - PSYCHIATRIC Hx Substance Use: No Meds Allergies/Adverse Reactions: Allergies Allergy/AdvReac Type Severity Reaction Status Date / Time sulfamethoxazole Allergy RASH Verified 10/29/16 14:41 [From ] trimethoprim [From ] Allergy RASH Verified 10/29/16 14:41 - Medications Medications: Current Medications Heparin Sodium (Porcine) (Heparin) 5,000 units SC Q8H ADY; Protocol Last Admin: 11/28/17 08:50 Dose: 5,000 units Sodium Chloride (Sodium Chloride 0.9%) 1,000 mls @ 100 mls/hr IV .Q10H ADY Last Admin: 11/27/17 21:30 Dose: 100 mls/hr Rizatriptan Benzoate [Maxalt] 10 Mg ( Home Med) 10 mg PO TID PRN PRN Reason: Headache Topiramate (Topamax) 50 mg PO DAILY ADY; Protocol Physical Exam - Constitutional Appears: Non-toxic, No Acute Distress - Head Exam Head Exam: ATRAUMATIC, NORMOCEPHALIC - Eye Exam Eye Exam: EOMI, PERRL. absent: Conjunctival injection, Nystagmus, Scleral icterus Pupil Exam: NORMAL ACCOMODATION, PERRL. absent: Irregular, Miosis, Mydriatic, Unequal - ENT Exam ENT Exam: Mucous Membranes Moist - Neck Exam Neck exam: Positive for: Full Rom - Respiratory Exam Respiratory Exam: Clear to Auscultation Bilateral, NORMAL BREATHING PATTERN. absent: Accessory Muscle Use, Rales, Rhonchi, Wheezes, Respiratory Distress, Stridor - Cardiovascular Exam Cardiovascular Exam: RRR, +S1, +S2. absent: Systolic Murmur - GI/Abdominal Exam GI & Abdominal Exam: Normal Bowel Sounds, Soft. absent: Distended, Firm, Guarding, Tenderness - Extremities Exam Extremities exam: Positive for: normal capillary refill, pedal pulses present. Negative for: calf tenderness, pedal edema Additional comments: Right thigh swelling/no erythema. Mildly tender to touch. - Back Exam Back exam: NORMAL INSPECTION. absent: CVA tenderness (L), CVA tenderness (R) - Neurological Exam Neurological exam: Alert, CN II-XII Intact, Oriented x3, Reflexes Normal Additional comments: + 2/5 muscle strength RLE, decreased motion 5/5 muscle strength RUE, LUE, LLE 2/4 DTRs bilateral LEs + Loss of sensation R lateral foot Sensation otherwise intact bilaterally + R thigh swollen, tender, no erythema + R foot drop - Psychiatric Exam Psychiatric exam: Normal Affect, Normal Mood - Skin Skin Exam: Dry, Normal Color, Warm Results - Vital Signs Recent Vital Signs: Last Vital Signs Temp 98.0 F 11/27/17 21:57 Pulse 83 11/28/17 06:00 Resp 16 11/28/17 06:00 BP 140/68 11/28/17 06:00 Pulse Ox 100 11/28/17 06:00 - Labs Result Diagrams: 11/28/17 05:50 11/28/17 05:50 Labs: Laboratory Results - last 24 hr 11/27/17 11/27/17 11/27/17 20:30 20:30 20:30 WBC 18.0 H D RBC 4.82 Hgb 14.7 D Hct 44.8 MCV 92.9 MCH 30.5 MCHC 32.8 RDW 12.5 Plt Count 262 MPV 11.5 H Gran % 87.0 H Lymph % (Auto) 3.8 L [place] % (Auto) 9.1 H Eos % (Auto) 0.0 L Baso % (Auto) 0.1 Gran # 15.63 H Lymph # (Auto) 0.7 L [place] # (Auto) 1.6 H Eos # (Auto) 0.0 Baso # (Auto) 0.01 Neutrophils % (Manual) 86 H Band Neutrophils % 4 H Lymphocytes % (Manual) 3 L Monocytes % (Manual) 7 H Toxic Granulation 2+ Platelet Evaluation Normal Hypochromasia 2+ Rouleaux 3+ ESR PT 10.0 INR 0.88 APTT 26.1 pO2 VBG pH VBG pCO2 VBG HCO3 VBG Total CO2 VBG O2 Sat (Calc) VBG Base Excess VBG Potassium Glucose Lactate FiO2 Sodium 141 Potassium 7.8 H* D Chloride 103 Carbon Dioxide 21 Anion Gap 25 H BUN 40 H Creatinine 2.6 H Est GFR ( Amer) 23 Est GFR (Non-Af Amer) 19 POC Glucose (mg/dL) Random Glucose 69 L Calcium 9.3 Total Bilirubin 0.5 AST 417 H D ALT 85 H Alkaline Phosphatase 111 Lactate Dehydrogenase Total Creatine Kinase CK-MB (CK-2) CK-MB (CK-2) % Troponin I 0.10 Total Protein 8.8 H Albumin 5.3 H Globulin 3.5 Albumin/Globulin Ratio 1.5 Triglycerides 92 Cholesterol 268 H LDL Cholesterol Direct 95 HDL Cholesterol 128 H TSH 3rd Generation Venous Blood Potassium Alcohol, Quantitative Blood Type Blood Type Confirm Antibody Screen BBK History Checked 11/27/17 11/27/17 11/27/17 20:30 20:52 22:37 WBC RBC Hgb Hct MCV MCH MCHC RDW Plt Count MPV Gran % Lymph % (Auto) [place] % (Auto) Eos % (Auto) Baso % (Auto) Gran # Lymph # (Auto) [place] # (Auto) Eos # (Auto) Baso # (Auto) Neutrophils % (Manual) Band Neutrophils % Lymphocytes % (Manual) Monocytes % (Manual) Toxic Granulation Platelet Evaluation Hypochromasia Rouleaux ESR PT INR APTT pO2 VBG pH VBG pCO2 VBG HCO3 VBG Total CO2 VBG O2 Sat (Calc) VBG Base Excess VBG Potassium Glucose Lactate FiO2 Sodium Potassium Chloride Carbon Dioxide Anion Gap BUN Creatinine Est GFR ( Amer) Est GFR (Non-Af Amer) POC Glucose (mg/dL) Random Glucose Calcium Total Bilirubin AST ALT Alkaline Phosphatase Lactate Dehydrogenase 1909 H Total Creatine Kinase 89574 H CK-MB (CK-2) 125.0 H CK-MB (CK-2) % 0.4 L Troponin I Total Protein Albumin Globulin Albumin/Globulin Ratio Triglycerides Cholesterol LDL Cholesterol Direct HDL Cholesterol TSH 3rd Generation Venous Blood Potassium Alcohol, Quantitative < 10 Blood Type O NEGATIVE Blood Type Confirm Antibody Screen Negative BBK History Checked No verified bt 11/27/17 11/27/17 11/28/17 23:00 23:40 00:16 WBC RBC Hgb Hct MCV MCH MCHC RDW Plt Count MPV Gran % Lymph % (Auto) [place] % (Auto) Eos % (Auto) Baso % (Auto) Gran # Lymph # (Auto) [place] # (Auto) Eos # (Auto) Baso # (Auto) Neutrophils % (Manual) Band Neutrophils % Lymphocytes % (Manual) Monocytes % (Manual) Toxic Granulation Platelet Evaluation Hypochromasia Rouleaux ESR PT INR APTT pO2 21 L VBG pH 7.21 L VBG pCO2 65.0 H VBG HCO3 26.0 VBG Total CO2 28.0 VBG O2 Sat (Calc) 28.9 L VBG Base Excess -3.2 L VBG Potassium 4.6 Glucose 110 H Lactate 2.9 H FiO2 21.0 Sodium 141.0 Potassium Chloride 105.0 Carbon Dioxide Anion Gap BUN Creatinine Est GFR ( Amer) Est GFR (Non-Af Amer) POC Glucose (mg/dL) 79 Random Glucose Calcium Total Bilirubin AST ALT Alkaline Phosphatase Lactate Dehydrogenase Total Creatine Kinase CK-MB (CK-2) CK-MB (CK-2) % Troponin I Total Protein Albumin Globulin Albumin/Globulin Ratio Triglycerides Cholesterol LDL Cholesterol Direct HDL Cholesterol TSH 3rd Generation Venous Blood Potassium 4.6 Alcohol, Quantitative Blood Type Blood Type Confirm O NEGATIVE Antibody Screen BBK History Checked 11/28/17 11/28/17 11/28/17 05:50 05:50 05:50 WBC 14.5 H RBC 4.86 Hgb 14.7 Hct 43.7 MCV 89.9 D MCH 30.2 MCHC 33.6 RDW 12.6 Plt Count 215 MPV 11.4 H Gran % 85.1 H Lymph % (Auto) 7.8 L [place] % (Auto) 7.0 H Eos % (Auto) 0.0 L Baso % (Auto) 0.1 Gran # 12.33 H Lymph # (Auto) 1.1 L [place] # (Auto) 1.0 H Eos # (Auto) 0.0 Baso # (Auto) 0.01 Neutrophils % (Manual) Band Neutrophils % Lymphocytes % (Manual) Monocytes % (Manual) Toxic Granulation Platelet Evaluation Hypochromasia Rouleaux ESR 3 PT INR APTT pO2 VBG pH VBG pCO2 VBG HCO3 VBG Total CO2 VBG O2 Sat (Calc) VBG Base Excess VBG Potassium Glucose Lactate FiO2 Sodium 137 Potassium 4.6 Chloride 104 Carbon Dioxide 23 Anion Gap 14 BUN 44 H Creatinine 1.9 H Est GFR ( Amer) 34 Est GFR (Non-Af Amer) 28 POC Glucose (mg/dL) Random Glucose 123 H Calcium 8.5 Total Bilirubin 0.5 AST 822 H D ALT 161 H Alkaline Phosphatase 78 Lactate Dehydrogenase Total Creatine Kinase 34355 H CK-MB (CK-2) 220.0 H CK-MB (CK-2) % 0.4 L Troponin I Total Protein 6.9 Albumin 4.0 Globulin 2.9 Albumin/Globulin Ratio 1.4 Triglycerides Cholesterol LDL Cholesterol Direct HDL Cholesterol TSH 3rd Generation 0.50 Venous Blood Potassium Alcohol, Quantitative Blood Type Blood Type Confirm Antibody Screen BBK History Checked 11/28/17 07:24 WBC RBC Hgb Hct MCV MCH MCHC RDW Plt Count MPV Gran % Lymph % (Auto) [place] % (Auto) Eos % (Auto) Baso % (Auto) Gran # Lymph # (Auto) [place] # (Auto) Eos # (Auto) Baso # (Auto) Neutrophils % (Manual) Band Neutrophils % Lymphocytes % (Manual) Monocytes % (Manual) Toxic Granulation Platelet Evaluation Hypochromasia Rouleaux ESR PT INR APTT pO2 186 H VBG pH 7.40 VBG pCO2 34.0 L VBG HCO3 21.1 VBG Total CO2 22.1 VBG O2 Sat (Calc) 99.2 H VBG Base Excess -3.0 L VBG Potassium 4.7 Glucose 125 H Lactate 1.7 FiO2 21.0 Sodium 134.0 Potassium Chloride 104.0 Carbon Dioxide Anion Gap BUN Creatinine Est GFR ( Amer) Est GFR (Non-Af Amer) POC Glucose (mg/dL) Random Glucose Calcium Total Bilirubin AST ALT Alkaline Phosphatase Lactate Dehydrogenase Total Creatine Kinase CK-MB (CK-2) CK-MB (CK-2) % Troponin I Total Protein Albumin Globulin Albumin/Globulin Ratio Triglycerides Cholesterol LDL Cholesterol Direct HDL Cholesterol TSH 3rd Generation Venous Blood Potassium 4.7 Alcohol, Quantitative Blood Type Blood Type Confirm Antibody Screen BBK History Checked Assessment & Plan - Assessment and Plan (Free Text) Assessment: 52 year old female with PMH migraines, initially presented for right thigh pain/swelling, found to have rhabdomyolysis: - Right thigh pain/swelling ikely muscle tear, causing compression/right leg weakness/paresthesia, unlikely CVA vs spine related injury - Head CT negative - NIHSS 2, not tPA candidate - Consulted Surgery. No acute surgical intervention. f/u recs. - RLE US neg for DVT - F/u MRI - for muscle tear? - Neuro checks - Treat rhabdomyolysis with aggressive fluid resuscitation - trend lfts - c.w chronic migraines home meds - monitor closely. Case seen and discussed with Dr Jesus. <Daron Jesus - Last Filed: 11/30/17 17:53> Meds - Medications Medications: Current Medications Amitriptyline HCl (Elavil) 20 mg PO HS ADY Last Admin: 11/29/17 21:34 Dose: 20 mg Heparin Sodium (Porcine) (Heparin) 5,000 units SC Q8H [facility]; Protocol Last Admin: 11/30/17 15:07 Dose: 5,000 units Potassium Chloride 20 meq/Sodium Bicarbonate 100 meq/Dextrose 1,110 mls @ 150 mls/hr IV .Q7H24M ADY Last Admin: 11/30/17 15:12 Dose: 150 mls/hr Rizatriptan Benzoate [Maxalt] 10 Mg ( Home Med) 10 mg PO TID PRN PRN Reason: Headache Non-Formulary Medication (Naratriptan Hcl [Amerge]) 2.5 mg PO DAILY PRN PRN Reason: Migraine headache Last Admin: 11/29/17 04:15 Dose: 2.5 mg Oxycodone/Acetaminophen (Percocet 5/325 Mg Tab) 1 tab PO QID PRN PRN Reason: Headache Stop: 12/01/17 09:44 Potassium Phos/Sodium Phos (Neutra-Phos) 1 pkt PO BID ADY Topiramate (Topamax) 100 mg PO HS [facility]; Protocol Results - Vital Signs Recent Vital Signs: Last Vital Signs Temp 99.9 F H 11/30/17 17:35 Pulse 91 H 11/30/17 17:35 Resp 18 11/30/17 17:35 BP 167/90 H 11/30/17 17:35 Pulse Ox 98 11/30/17 05:47 - Labs Result Diagrams: 11/30/17 06:00 11/30/17 06:00 Labs: Laboratory Results - last 24 hr 11/29/17 11/30/17 11/30/17 21:30 06:00 06:00 WBC 7.6 D RBC 3.30 L Hgb 9.8 L D Hct 29.6 L MCV 89.7 MCH 29.7 MCHC 33.1 RDW 13.0 Plt Count 160 MPV 11.1 H Gran % 50.2 Lymph % (Auto) 35.7 H [place] % (Auto) 11.5 H Eos % (Auto) 2.1 Baso % (Auto) 0.5 Gran # 3.79 Lymph # (Auto) 2.7 [place] # (Auto) 0.9 H Eos # (Auto) 0.2 Baso # (Auto) 0.04 Sodium 143 Potassium 3.6 Chloride 117 H Carbon Dioxide 26 Anion Gap 4 L BUN 13 Creatinine 0.9 Est GFR ( Amer) > 60 Est GFR (Non-Af Amer) > 60 POC Glucose (mg/dL) 121 H Random Glucose 95 Calcium 8.1 L Phosphorus 2.0 L Magnesium 2.0 Total Bilirubin 0.4 AST 707 H D ALT 183 H Alkaline Phosphatase 54 Total Creatine Kinase 20859 H CK-MB (CK-2) 17.8 H CK-MB (CK-2) % 0.1 L Total Protein 5.1 L Albumin 2.7 L Globulin 2.4 Albumin/Globulin Ratio 1.1 11/30/17 11/30/17 11/30/17 07:23 11:58 14:15 WBC RBC Hgb Hct MCV MCH MCHC RDW Plt Count MPV Gran % Lymph % (Auto) [place] % (Auto) Eos % (Auto) Baso % (Auto) Gran # Lymph # (Auto) [place] # (Auto) Eos # (Auto) Baso # (Auto) Sodium Potassium Chloride Carbon Dioxide Anion Gap BUN Creatinine Est GFR ( Amer) Est GFR (Non-Af Amer) POC Glucose (mg/dL) 103 94 Random Glucose Calcium Phosphorus Magnesium Total Bilirubin AST ALT Alkaline Phosphatase Total Creatine Kinase 62428 H CK-MB (CK-2) 14.3 H CK-MB (CK-2) % 0.0 L Total Protein Albumin Globulin Albumin/Globulin Ratio 11/30/17 16:22 WBC RBC Hgb Hct MCV MCH MCHC RDW Plt Count MPV Gran % Lymph % (Auto) [place] % (Auto) Eos % (Auto) Baso % (Auto) Gran # Lymph # (Auto) [place] # (Auto) Eos # (Auto) Baso # (Auto) Sodium Potassium Chloride Carbon Dioxide Anion Gap BUN Creatinine Est GFR ( Amer) Est GFR (Non-Af Amer) POC Glucose (mg/dL) 100 Random Glucose Calcium Phosphorus Magnesium Total Bilirubin AST ALT Alkaline Phosphatase Total Creatine Kinase CK-MB (CK-2) CK-MB (CK-2) % Total Protein Albumin Globulin Albumin/Globulin Ratio Attending/Attestation - Attestation I have personally seen and examined this patient.: Yes I have fully participated in the care of the patient.: Yes I have reviewed all pertinent clinical information: Yes Notes (Text): 11/30/17 17:52 I agree with the assessment and plan. The weakness appears to be related to muscle breakdown and nerve compression. Surgery consultation is needed for compartment syndrome.
--- NOTE | 2017-11-28 09:49 | CARD ---
APPROVED REPORT Date of service: 11/28/2017 EKG Measurement Heart [id number] <Conclusion> Normal sinus rhythm Biatrial enlargement Nonspecific T wave abnormality
[2017-11-28] MEDS: Sodium Chloride 0.9% 1,000 ML IV SCH ×3 (10:07→23:41)
--- NOTE | 2017-11-28 13:04 | CARD ---
APPROVED REPORT Date of service: 11/27/2017 EKG Measurement Heart [id number] <Conclusion> Normal sinus rhythm Normal Electrocardiogram
[2017-11-28 14:48] VITALS: BMI 19.1
[2017-11-28] MEDS ORDERED: Influenza Vaccine 60 mcg/0.5 mL SYR (4YR UP) IM ONE (14:48)
[2017-11-28] MEDS ORDERED: Pneumococcal 23-Valent Vaccine IM ONE (14:48)
--- NOTE | 2017-11-28 15:03 | US ---
PROCEDURE: Right lower extremity venous US HISTORY: Leg pain and swelling. Evaluate for DVT. PHYSICIAN(S): Marquez Frazier M.D. TECHNIQUE: Duplex sonography and color-flow Doppler with graded compression were used to evaluate the deep venous system of the right lower extremity. FINDINGS: The visualized deep venous system of the right lower extremity is sonographically normal and compressible. Normal waveforms and augmentation are seen. There is no sonographic evidence for deep venous thrombosis in the visualized segments of the right lower extremity. IMPRESSION: 1. No sonographic evidence for deep venous thrombosis in the visualized segments of the right lower extremity.
--- NOTE | 2017-11-28 15:09 | CP.PCM.CON ---
<LuisZachary osunai - Last Filed: 11/28/17 16:33> History of Present Illness - History of Present Illness History of Present Illness: General Surgery consult note for Dr. Wise Patient is a 52 year old female with a PMH of migraines who presented to the ED with right leg weakness and numbness. She also complains of right groin pain. She states that she went for a 3 miles run yesterday. She then took a nap and woke up with right leg weakness and she states that her right leg "gave out". She denies other focal deficits, dysarthria, and paresthesia elsewhere. A code stroke was called in the ED and patient's NIHSS was 2. Patient denies any headache, fevers, chills, shortness of breath, chest pain, abdominal pain, N/V/D. PMHx: migraines PSHx: fibroid removal Home Meds: topiramate 50mg po qd, topiramate 25mg po hs, maxalt 10mg po tid, percocet 5/325 1 tab po qid Allergies: sulfamethoxazole and trimethorpim SocialHx: Denies tobacco use and hx, denies alcohol use, denies illicit drugs FamHx: denies Review of Systems - Review of Systems All systems: reviewed and no additional remarkable complaints except Past Patient History - Infectious Disease Hx of Infectious Diseases: None - Past Social History Smoking Status: Never Smoked - CARDIAC Hx Cardiac Disorders: Yes Hx Congestive Heart Failure: Yes (episode in 2008) Hx Mitral Valve Prolapse: Yes (and regurgitation dx pt in her 20's) Other/Comment: mvp and regurgitation may have been med related, pt is not sure but to be sure was taken off methylergonovine by pmd - PULMONARY Hx Respiratory Disorders: No - NEUROLOGICAL Hx Neurological Disorder: Yes Hx Migraine: Yes (last migrane was last week) - HEENT Hx HEENT Problems: No - RENAL Hx Chronic Kidney Disease: No - ENDOCRINE/METABOLIC Hx Endocrine Disorders: No - HEMATOLOGICAL/ONCOLOGICAL Hx Blood Disorders: Yes Hx Anemia: Yes (in the past) - INTEGUMENTARY Hx Dermatological Problems: Yes Other/Comment: abrasion x 2 to right side of face, slight redness to left knee - MUSCULOSKELETAL/RHEUMATOLOGICAL Hx Musculoskeletal Disorders: Yes Hx Arthritis: Yes (right shoulder and knees) Hx Falls: Yes (11/27/17) - GASTROINTESTINAL Hx Gastrointestinal Disorders: No - GENITOURINARY/GYNECOLOGICAL Hx Genitourinary Disorders: Yes (hs not voided since coming to ed yesterday) - PSYCHIATRIC Hx Psychophysiologic Disorder: No - SURGICAL HISTORY Other/Comment: fibroids removed around 1995 Meds Allergies/Adverse Reactions: Allergies Allergy/AdvReac Type Severity Reaction Status Date / Time sulfamethoxazole Allergy RASH Verified 10/29/16 14:41 [From ] trimethoprim [From ] Allergy RASH Verified 10/29/16 14:41 - Medications Medications: Current Medications Heparin Sodium (Porcine) (Heparin) 5,000 units SC Q8H ADY; Protocol Last Admin: 11/28/17 08:50 Dose: 5,000 units Sodium Chloride (Sodium Chloride 0.9%) 1,000 mls @ 150 mls/hr IV .Q6H40M ADY Rizatriptan Benzoate [Maxalt] 10 Mg ( Home Med) 10 mg PO TID PRN PRN Reason: Headache Oxycodone/Acetaminophen (Percocet 5/325 Mg Tab) 1 tab PO QID PRN PRN Reason: Headache Stop: 12/01/17 09:44 Topiramate (Topamax) 50 mg PO DAILY ADY; Protocol Topiramate (Topamax) 25 mg PO HS ADY; Protocol Physical Exam - Constitutional Appears: Well, Non-toxic, No Acute Distress - Head Exam Head Exam: ATRAUMATIC, NORMOCEPHALIC - Eye Exam Eye Exam: Normal appearance - ENT Exam ENT Exam: Mucous Membranes Moist - Respiratory Exam Respiratory Exam: NORMAL BREATHING PATTERN. absent: Respiratory Distress - Cardiovascular Exam Cardiovascular Exam: RRR. absent: Tachycardia - GI/Abdominal Exam GI & Abdominal Exam: Soft. absent: Distended, Guarding, Tenderness - Extremities Exam Extremities exam: Positive for: normal capillary refill, pedal pulses present. Negative for: calf tenderness, pedal edema Additional comments: Femoral, popliteal, dorsalis pedis, and tibialis anterior pulses palpable bilaterally. Right upper thigh and right anterior leg compartments are soft. There is skin changes along the medial side of the right thigh. - Neurological Exam Neurological exam: Alert, CN II-XII Intact, Oriented x3 Additional comments: 5/5 muscle strength right hip flexion, extension, and abduction. 3/5 muscle s trength on hip adduction. 1/5 muscle strength in right knee extension and flexion, sensation decreased in right foot, foot drop on right foot - Psychiatric Exam Psychiatric exam: Normal Affect, Normal Mood - Skin Skin Exam: Dry, Intact, Normal Color, Warm Results - Vital Signs Recent Vital Signs: Last Vital Signs Temp 98.0 F 11/27/17 21:57 Pulse 92 H 11/28/17 10:56 Resp 17 11/28/17 10:56 BP 136/70 11/28/17 10:56 Pulse Ox 98 11/28/17 10:56 - Labs Result Diagrams: 11/28/17 05:50 11/28/17 05:50 Labs: Laboratory Results - last 24 hr 11/27/17 11/27/17 11/27/17 20:30 20:30 20:30 WBC 18.0 H D RBC 4.82 Hgb 14.7 D Hct 44.8 MCV 92.9 MCH 30.5 MCHC 32.8 RDW 12.5 Plt Count 262 MPV 11.5 H Gran % 87.0 H Lymph % (Auto) 3.8 L [place] % (Auto) 9.1 H Eos % (Auto) 0.0 L Baso % (Auto) 0.1 Gran # 15.63 H Lymph # (Auto) 0.7 L [place] # (Auto) 1.6 H Eos # (Auto) 0.0 Baso # (Auto) 0.01 Neutrophils % (Manual) 86 H Band Neutrophils % 4 H Lymphocytes % (Manual) 3 L Monocytes % (Manual) 7 H Toxic Granulation 2+ Platelet Evaluation Normal Hypochromasia 2+ Rouleaux 3+ ESR PT 10.0 INR 0.88 APTT 26.1 pO2 VBG pH VBG pCO2 VBG HCO3 VBG Total CO2 VBG O2 Sat (Calc) VBG Base Excess VBG Potassium Glucose Lactate FiO2 Sodium 141 Potassium 7.8 H* D Chloride 103 Carbon Dioxide 21 Anion Gap 25 H BUN 40 H Creatinine 2.6 H Est GFR ( Amer) 23 Est GFR (Non-Af Amer) 19 POC Glucose (mg/dL) Random Glucose 69 L Hemoglobin A1c Calcium 9.3 Total Bilirubin 0.5 AST 417 H D ALT 85 H Alkaline Phosphatase 111 Lactate Dehydrogenase Total Creatine Kinase CK-MB (CK-2) CK-MB (CK-2) % Troponin I 0.10 Total Protein 8.8 H Albumin 5.3 H Globulin 3.5 Albumin/Globulin Ratio 1.5 Triglycerides 92 Cholesterol 268 H LDL Cholesterol Direct 95 HDL Cholesterol 128 H TSH 3rd Generation Venous Blood Potassium Alcohol, Quantitative Blood Type Blood Type Confirm Antibody Screen BBK History Checked 11/27/17 11/27/17 11/27/17 20:30 20:30 20:52 WBC RBC Hgb Hct MCV MCH MCHC RDW Plt Count MPV Gran % Lymph % (Auto) [place] % (Auto) Eos % (Auto) Baso % (Auto) Gran # Lymph # (Auto) [place] # (Auto) Eos # (Auto) Baso # (Auto) Neutrophils % (Manual) Band Neutrophils % Lymphocytes % (Manual) Monocytes % (Manual) Toxic Granulation Platelet Evaluation Hypochromasia Rouleaux ESR PT INR APTT pO2 VBG pH VBG pCO2 VBG HCO3 VBG Total CO2 VBG O2 Sat (Calc) VBG Base Excess VBG Potassium Glucose Lactate FiO2 Sodium Potassium Chloride Carbon Dioxide Anion Gap BUN Creatinine Est GFR ( Amer) Est GFR (Non-Af Amer) POC Glucose (mg/dL) Random Glucose Hemoglobin A1c 5.4 Calcium Total Bilirubin AST ALT Alkaline Phosphatase Lactate Dehydrogenase Total Creatine Kinase CK-MB (CK-2) CK-MB (CK-2) % Troponin I Total Protein Albumin Globulin Albumin/Globulin Ratio Triglycerides Cholesterol LDL Cholesterol Direct HDL Cholesterol TSH 3rd Generation Venous Blood Potassium Alcohol, Quantitative < 10 Blood Type O NEGATIVE Blood Type Confirm Antibody Screen Negative BBK History Checked No verified bt 11/27/17 11/27/17 11/27/17 22:37 23:00 23:40 WBC RBC Hgb Hct MCV MCH MCHC RDW Plt Count MPV Gran % Lymph % (Auto) [place] % (Auto) Eos % (Auto) Baso % (Auto) Gran # Lymph # (Auto) [place] # (Auto) Eos # (Auto) Baso # (Auto) Neutrophils % (Manual) Band Neutrophils % Lymphocytes % (Manual) Monocytes % (Manual) Toxic Granulation Platelet Evaluation Hypochromasia Rouleaux ESR PT INR APTT pO2 21 L VBG pH 7.21 L VBG pCO2 65.0 H VBG HCO3 26.0 VBG Total CO2 28.0 VBG O2 Sat (Calc) 28.9 L VBG Base Excess -3.2 L VBG Potassium 4.6 Glucose 110 H Lactate 2.9 H FiO2 21.0 Sodium 141.0 Potassium Chloride 105.0 Carbon Dioxide Anion Gap BUN Creatinine Est GFR ( Amer) Est GFR (Non-Af Amer) POC Glucose (mg/dL) Random Glucose Hemoglobin A1c Calcium Total Bilirubin AST ALT Alkaline Phosphatase Lactate Dehydrogenase 1909 H Total Creatine Kinase 90094 H CK-MB (CK-2) 125.0 H CK-MB (CK-2) % 0.4 L Troponin I Total Protein Albumin Globulin Albumin/Globulin Ratio Triglycerides Cholesterol LDL Cholesterol Direct HDL Cholesterol TSH 3rd Generation Venous Blood Potassium 4.6 Alcohol, Quantitative Blood Type Blood Type Confirm O NEGATIVE Antibody Screen BBK History Checked 11/28/17 11/28/17 11/28/17 00:16 05:50 05:50 WBC 14.5 H RBC 4.86 Hgb 14.7 Hct 43.7 MCV 89.9 D MCH 30.2 MCHC 33.6 RDW 12.6 Plt Count 215 MPV 11.4 H Gran % 85.1 H Lymph % (Auto) 7.8 L [place] % (Auto) 7.0 H Eos % (Auto) 0.0 L Baso % (Auto) 0.1 Gran # 12.33 H Lymph # (Auto) 1.1 L [place] # (Auto) 1.0 H Eos # (Auto) 0.0 Baso # (Auto) 0.01 Neutrophils % (Manual) Band Neutrophils % Lymphocytes % (Manual) Monocytes % (Manual) Toxic Granulation Platelet Evaluation Hypochromasia Rouleaux ESR 3 PT INR APTT pO2 VBG pH VBG pCO2 VBG HCO3 VBG Total CO2 VBG O2 Sat (Calc) VBG Base Excess VBG Potassium Glucose Lactate FiO2 Sodium 137 Potassium 4.6 Chloride 104 Carbon Dioxide 23 Anion Gap 14 BUN 44 H Creatinine 1.9 H Est GFR ( Amer) 34 Est GFR (Non-Af Amer) 28 POC Glucose (mg/dL) 79 Random Glucose 123 H Hemoglobin A1c Calcium 8.5 Total Bilirubin 0.5 AST 822 H D ALT 161 H Alkaline Phosphatase 78 Lactate Dehydrogenase Total Creatine Kinase 22446 H CK-MB (CK-2) 220.0 H CK-MB (CK-2) % 0.4 L Troponin I Total Protein 6.9 Albumin 4.0 Globulin 2.9 Albumin/Globulin Ratio 1.4 Triglycerides Cholesterol LDL Cholesterol Direct HDL Cholesterol TSH 3rd Generation Venous Blood Potassium Alcohol, Quantitative Blood Type Blood Type Confirm Antibody Screen BBK History Checked 11/28/17 11/28/17 11/28/17 05:50 07:24 10:30 WBC RBC Hgb Hct MCV MCH MCHC RDW Plt Count MPV Gran % Lymph % (Auto) [place] % (Auto) Eos % (Auto) Baso % (Auto) Gran # Lymph # (Auto) [place] # (Auto) Eos # (Auto) Baso # (Auto) Neutrophils % (Manual) Band Neutrophils % Lymphocytes % (Manual) Monocytes % (Manual) Toxic Granulation Platelet Evaluation Hypochromasia Rouleaux ESR PT INR APTT pO2 186 H VBG pH 7.40 VBG pCO2 34.0 L VBG HCO3 21.1 VBG Total CO2 22.1 VBG O2 Sat (Calc) 99.2 H VBG Base Excess -3.0 L VBG Potassium 4.7 Glucose 125 H Lactate 1.7 FiO2 21.0 Sodium 134.0 Potassium Chloride 104.0 Carbon Dioxide Anion Gap BUN Creatinine Est GFR ( Amer) Est GFR (Non-Af Amer) POC Glucose (mg/dL) Random Glucose Hemoglobin A1c Calcium Total Bilirubin AST ALT Alkaline Phosphatase Lactate Dehydrogenase Total Creatine Kinase CK-MB (CK-2) CK-MB (CK-2) % Troponin I 0.05 D Total Protein Albumin Globulin Albumin/Globulin Ratio Triglycerides Cholesterol LDL Cholesterol Direct HDL Cholesterol TSH 3rd Generation 0.50 Venous Blood Potassium 4.7 Alcohol, Quantitative Blood Type Blood Type Confirm Antibody Screen BBK History Checked Assessment & Plan - Assessment and Plan (Free Text) Assessment: Patient is a 52 year old female presenting with right leg weakness and numbness. Surgery was consulted to rule out compartment syndrome. Lower extremity ultrasound was negative for a DVT. Plan: - No acute surgical intervention at this time - Most likely musculoskeletal or neurological etiologies - Follow up with MRI - Will continue to monitor Case discussed with Dr. Billie Cole DO PGY-1 <Tom Wise - Last Filed: 12/02/17 16:31> Meds - Medications Medications: Current Medications Amitriptyline HCl (Elavil) 20 mg PO HS ADY Last Admin: 12/01/17 21:16 Dose: 20 mg Heparin Sodium (Porcine) (Heparin) 5,000 units SC Q8H ADY; Protocol Last Admin: 12/02/17 10:19 Dose: 5,000 units Potassium Chloride 20 meq/Sodium Bicarbonate 50 meq/Dextrose 1,060 mls @ 150 mls/hr IV .Q7H4M [facility] Last Admin: 12/02/17 14:54 Dose: 150 mls/hr Rizatriptan Benzoate [Maxalt] 10 Mg ( Home Med) 10 mg PO TID PRN PRN Reason: Headache Non-Formulary Medication (Naratriptan Hcl [Amerge]) 2.5 mg PO DAILY PRN PRN Reason: Migraine headache Last Admin: 12/02/17 14:31 Dose: 2.5 mg Potassium Phos/Sodium Phos (Neutra-Phos) 1 pkt PO BID ADY Last Admin: 12/02/17 10:19 Dose: 1 pkt Topiramate (Topamax) 100 mg PO HS [facility]; Protocol Last Admin: 12/01/17 22:00 Dose: 100 mg Results - Vital Signs Recent Vital Signs: Last Vital Signs Temp 98.8 F 12/02/17 12:00 Pulse 100 H 12/02/17 14:00 Resp 19 12/02/17 12:00 BP 142/74 12/02/17 12:00 Pulse Ox 96 12/02/17 09:00 - Labs Result Diagrams: 12/02/17 06:30 12/02/17 06:30 Labs: Laboratory Results - last 24 hr 12/01/17 12/01/17 12/02/17 16:36 21:29 06:30 WBC RBC Hgb Hct MCV MCH MCHC RDW Plt Count MPV Gran % Lymph % (Auto) [place] % (Auto) Eos % (Auto) Baso % (Auto) Gran # Lymph # (Auto) [place] # (Auto) Eos # (Auto) Baso # (Auto) PT INR APTT Sodium Potassium Chloride Carbon Dioxide Anion Gap BUN Creatinine Est GFR ( Amer) Est GFR (Non-Af Amer) POC Glucose (mg/dL) 95 109 Random Glucose Calcium Phosphorus Magnesium Iron 100 TIBC 215 L % Saturation 47 Ferritin Total Bilirubin AST ALT Alkaline Phosphatase Total Creatine Kinase CK-MB (CK-2) CK-MB (CK-2) % Total Protein Albumin Globulin Albumin/Globulin Ratio 12/02/17 12/02/17 12/02/17 06:30 06:30 06:30 WBC 7.8 RBC 3.13 L Hgb 9.5 L Hct 28.0 L MCV 89.5 MCH 30.4 MCHC 33.9 RDW 12.9 Plt Count 201 MPV 10.6 Gran % 45.4 L Lymph % (Auto) 43.0 H [place] % (Auto) 7.5 H Eos % (Auto) 3.6 Baso % (Auto) 0.5 Gran # 3.56 Lymph # (Auto) 3.4 [place] # (Auto) 0.6 Eos # (Auto) 0.3 Baso # (Auto) 0.04 PT 10.0 INR 0.87 APTT 26.7 Sodium 141 Potassium 3.5 L Chloride 108 H Carbon Dioxide 31 Anion Gap 6 L BUN 10 Creatinine 0.8 Est GFR ( Amer) > 60 Est GFR (Non-Af Amer) > 60 POC Glucose (mg/dL) Random Glucose 105 Calcium 8.5 Phosphorus 4.1 Magnesium 1.6 L Iron TIBC % Saturation Ferritin 68.6 Total Bilirubin 0.6 AST 477 H ALT 178 H Alkaline Phosphatase 45 Total Creatine Kinase 65928 H CK-MB (CK-2) 3.8 H CK-MB (CK-2) % Cancelled Total Protein 5.1 L Albumin 2.8 L Globulin 2.3 Albumin/Globulin Ratio 1.2 12/02/17 12/02/17 07:40 11:32 WBC RBC Hgb Hct MCV MCH MCHC RDW Plt Count MPV Gran % Lymph % (Auto) [place] % (Auto) Eos % (Auto) Baso % (Auto) Gran # Lymph # (Auto) [place] # (Auto) Eos # (Auto) Baso # (Auto) PT INR APTT Sodium Potassium Chloride Carbon Dioxide Anion Gap BUN Creatinine Est GFR ( Amer) Est GFR (Non-Af Amer) POC Glucose (mg/dL) 90 110 Random Glucose Calcium Phosphorus Magnesium Iron TIBC % Saturation Ferritin Total Bilirubin AST ALT Alkaline Phosphatase Total Creatine Kinase CK-MB (CK-2) CK-MB (CK-2) % Total Protein Albumin Globulin Albumin/Globulin Ratio Attending/Attestation - Attestation I have personally seen and examined this patient.: Yes I have fully participated in the care of the patient.: Yes I have reviewed all pertinent clinical information: Yes Notes (Text): Pt was seen and examined at bedside Agree with above note and assessment Pt with traumatic rupture of muscles of left middle thigh Possible adductor yumiko Labs and radiology reviewed Ass: Muscles rupture with hematoma, Rhabdomyolysis Plan : IV Hydration Cold compresses Orthopedic f.u we will f.u Plan d.w pt in detail Risk and benefit explained in detail.
[2017-11-28 16:07] LABS: HEPATITIS B SURFACE AG Negative (NEGATIVE)
[2017-11-28 16:13] LABS: HEPATITIS A IGM NEGATIVE (NEGATIVE); HEPATITIS B CORE AB NEGATIVE (NEGATIVE)
[2017-11-28 16:25] LABS: HEPATITIS C ANTIBODY NEGATIVE (NEGATIVE)
[2017-11-28] MEDS ORDERED: NARATRIPTAN HCL 2.5 MG PO PRN (17:50)
--- NOTE | 2017-11-29 00:37 | CON ---
DATE: 11/28/2017 ADMITTED FOR: Alfredo Hinton MD. and Sacha Hinton MD. REFERRING PHYSICIAN: Alfredo Hinton MD. REASON FOR CONSULTATION: Evaluation of a patient unknown to me who presents with acute renal failure in the setting of rhabdomyolysis, status post a 3-mile run. HISTORY OF PRESENT ILLNESS: The patient is a pleasant 52-year-old white female with a past history of migraine headaches, on intermittent use of medications for migraine headaches. The patient has had no recent ongoing issues. Apparently, she had a run prior to admission of three miles. She noticed the onset of discomfort, pain, and swelling in her right medial thigh area. She states that she had weakness in her leg and numbness. She spoke to family member and was brought to the Emergency Room. In the Emergency Room, she was noted to have swelling and tenderness of the right medial thigh area along with an elevated CPK of 35,641. Her BUN and creatinine were 40 and 2.6. In 2017, her BUN and creatinine were normal. Her potassium was extremely elevated at 7.8, non-hemolyzed. She was treated in the Emergency Room acutely for her hyperkalemia. Repeat K was 4.6. The patient is currently being admitted to the hospital for evaluation and treatment of her acute renal failure and acute rhabdomyolysis. We are asked to evaluate the patient and to help manage her situation. PAST MEDICAL HISTORY: Significant for migraine headaches alone. MEDICATIONS: At home, include that of Topamax, Maxalt, and p.r.n. Percocet. Currently in hospital include that of subcu heparin, p.r.n. Percocet, Maxalt p.r.n., normal saline 100 mL an hour, and Topamax. ALLERGIES: THE PATIENT IS ALLERGIC TO SULFAMETHOXAZOLE AND TRIMETHOPRIM. SOCIAL HISTORY: No history of cigarette smoking. No history of drug abuse. No history of alcohol. FAMILY HISTORY: Mother is alive and well. Father of complications of colon and gastric cancer. REVIEW OF SYSTEMS: Ten plus systems reviewed with the patient. GENERAL: The patient states appetite and weight have been stable. ENT: Denies any hearing or visual problems. PULMONARY: No shortness of breath. No history of asthma, bronchitis, emphysema, pneumonia. CARDIAC: No history of coronary artery disease. No history of valvular heart disease. GASTROINTESTINAL: No nausea, vomiting, diarrhea, constipation, or abdominal pain. GENITOURINARY: No history of kidney disease. No history of UTIs. Presently, the patient denies dark urine. GYNECOLOGIC: History unremarkable. ENDOCRINE: No history of diabetes. MUSCULOSKELETAL: As noted above. Otherwise negative. NEUROLOGIC: No history of CVA, TIA, seizures, or syncope. HEMATOLOGY/ONCOLOGY: No history of anemia. No history of malignancy. PSYCHIATRIC: History is negative. PHYSICAL EXAMINATION: GENERAL: The patient is currently seen in the ER, bed #7. She is awaiting transfer to the floor. VITAL SIGNS: Present blood pressure is 136/70, highest blood pressure was 132/95. Pulse is 92, temperature is 98 degrees. Respiratory rate is 17 with a pulse ox of 98%. HEENT: Shows her to be normocephalic, atraumatic. Conjunctivae are pink. Sclerae are nonicteric. Pupils are equal, round, and reactive to light and accommodation. Extraocular muscles are intact. Posterior pharynx is normal. NECK: Supple. No neck vein distention or thyromegaly. No lymphadenopathy. No bruits. CHEST: Clear to auscultation and percussion. No rales, rhonchi, or wheezing. CARDIOVASCULAR: Shows a regular rate and rhythm without audible murmurs, rubs, or gallops. ABDOMEN: Soft. Bowel sounds normal. No rebound or guarding. No masses. EXTREMITIES: Significant for tenderness, fullness, and perhaps slightly increased warmth over her right medial thigh area, is asymmetrically larger than the left side. It is tender to palpation. No lower extremity edema. No cyanosis or clubbing. Distal lower extremity pulses are 2+ bilaterally. NEUROLOGIC: Shows her to be alert, oriented x3 with no gross focal motor or sensory deficits. BACK: Shows no CVAT. No spinal tenderness. LABORATORY DATA AND IMAGING: Admitting chest x-ray is unremarkable. Admitting head CT is unremarkable. Admitting EKG shows a normal sinus rhythm with no acute ST or T-wave changes. CBC: White blood cell count 18 on the day of admission, earlier this morning, was 14.5. Hemoglobin 14.7, platelet count normal at 215,000. ESR is 3. Coags are normal. Blood gas yesterday, venous blood gas, 7.21 with a pO2 of 21 and a pCO2 of 65. Today's blood gas is 7.4 with a pO2 of 186 and a pCO2 of 34. Lactate level initially was 2.9, followup was 1.7. Chemistries: Admitting SMA-7 showed a sodium 141, potassium of 7.8, BUN of 40 with a creatinine of 2.6. Her baseline BUN is less than 20 with a baseline creatinine of 0.9. Glucose was 69. Elevated liver enzymes of 417 for the AST and 85 for the ALT. Today's AST was 822 with an ALT of 161. LDH is significantly elevated at 1909. Today's BUN 44 with a creatinine of 1.9. Repeat potassium level is 4.6. CPK was 35,641 on admission, today was 54,094. Slight elevation of CPK-MB. Troponin levels are flat at 0.1. Albumin is 5.3, today is 4. Total cholesterol nonfasting was 268 with an HDL of 128, LDL of 95. TSH level was normal. Toxicology, alcohol was negative. Urines are available for comment as they have not been collected as of yet. Microbiology, no cultures available for comment. ASSESSMENT: 1. Acute renal failure in the setting of acute rhabdomyolysis. Apparently, the patient was in excellent health until she had a 3-mile run. Post the run, she noted the onset of discomfort and pain in her right lower extremity with right lower extremity leg weakness. The patient has what appears to be acute rhabdomyolysis with tenderness and swelling of the muscles of the right medial thigh. No imaging studies of the five were done. The patient denies having any trauma during the run. She did not hear a pop during the run. Status post hyperkalemia. Potassium levels now normal post the standard cocktail in the Emergency Room. With IV fluid hydration, BUN and creatinine are trending downward. We will obtain a phosphorus level, uric acid level, urinalysis, urine sodium, and urine creatinine. BUN and creatinine did not return to normal, I will obtain a renal ultrasound tomorrow. I will increase her IV fluid hydration. I will obtain an imaging study of her right medial thigh to rule out a torn muscle, tendon, etc. 2. History of migraine headaches. The patient may continue her home medications. She has been stable on these p.r.n. medications for a long period of time. PLAN: 1. We will obtain a phosphorus level, a uric acid level, a urinalysis with urine electrolytes. If necessary, we could alkanize the urine. I do not think that this will be necessary. 2. P.r.n. renal ultrasound. Her BUN and creatinine did not fall to normal. 3. Continue IV fluid, but I will increase the rate given her acute rhabdomyolysis, an elevated BUN and creatinine, and her rising CPK. The patient also encouraged to drink p.o. fluids. 4. We will obtain an imaging study of her right medial thigh area to rule out a possible hematoma, torn muscle, or torn tendon. 5. Accurate I's and O's. 6. Daily labs. 7. The patient reassured that this is all an acute situation and that her renal parameters will likely return to normal very shortly. Thank you for letting me partake and share in the care of your patient. Wilton Bergman MD
--- NOTE | 2017-11-29 03:58 | CON ---
DATE: 11/28/2017 INPATIENT CONSULTATION REASON FOR CONSULT: Right lower extremity numbness. HISTORY OF PRESENT ILLNESS: This is a 52-year-old female who approximately Tuesday morning went for a jog and after the jog, developed some numbness in the right lower extremity. The patient denies any specific history of trauma. She noticed that she had difficulty bearing weight on the right lower extremity and had difficulty moving her ankle. She subsequently presented to the emergency room on the evening of 11/27/2017, with complaints of difficulty ambulating and numbness in the right lower extremity. She denies any back pain. She states that she did notice swelling in her thigh and some bruising. PHYSICAL EXAMINATION: GENERAL: This is a female, no apparent distress. She is awake, alert, and oriented. EXTREMITIES: Evaluation of right lower extremity showed she has some obvious swelling about the right thigh more posterior medially. She has mild tenderness in the area of her hip adductor tendons and some mild tenderness posteriorly along the hamstring muscle belly. She is nontender over the ischial tuberosity. She has some difficulty with active knee flexion, but no significant pain with resisted knee flexion. She does have weakness with knee flexion. SKIN: Otherwise, intact. There is some ecchymosis noted about the medial thigh. NEUROLOGIC: She has weakness with 3/5 strength with knee flexion. She has no active ankle dorsiflexion. She has no active extension of her first toe. She has some decrease soft touch in the lateral aspect of the right leg extending into the dorsum of the foot. She has good capillary refill in all of her toes. Her thigh and calf, otherwise, are soft. She has palpable DP and PT pulse. LABORATORY DATA: There is no x-rays done. She had a CAT scan done with no IV contrast, which showed no obvious bony abnormalities. Official reading is still pending. IMPRESSION: Right lower extremity swelling with peroneal nerve deficit. PLAN: At this point, I had a lengthy discussion with the patient and I explained to her that she may have had a muscle tear, which led to bleeding and hematoma formation causing impingement on the sciatic nerve leading to her neural deficit. I recommended an MRI of the right thigh for evaluation for possible hematoma. I also recommended a vascular consult. I discussed this with Dr. Hinton. He will also discuss the possibility of her having a compartment syndrome. However, given that this is over 36 hours since the onset of symptoms, I did not recommend fasciotomies at this time. For now, Dr. Hinton is going to order the MRI and we will continue to follow the patient and we will follow up on the MRI once this complete. Itz Pro MD
[2017-11-29] MEDS: NARATRIPTAN HCL 2.5 MG PO PRN (04:15)
[2017-11-29] MEDS: Sodium Chloride 0.9% 1,000 ML IV SCH ×2 (04:16→15:36)
[2017-11-29 04:40] LABS: URINE BILIRUBIN NEGATIVE (NEGATIVE); URINE BLOOD LARGE (NEGATIVE); URINE GLUCOSE (UA) NEGATIVE (NEGATIVE); URINE LEUKOCYTE ESTERASE NEGATIVE Leu/uL (NEGATIVE); URINE PROTEIN NEGATIVE mg/dL (<30 mg/dL); URINE UROBILINOGEN 0.2 E.U./dL (<1 E.U./dL)
[2017-11-29 04:43] LABS: URINE APPEARANCE CLEAR (CLEAR); URINE COLOR YELLOW (YELLOW)
[2017-11-29 05:06] LABS: OPIATES, UR NEGATIVE (NEGATIVE)
[2017-11-29 05:29] LABS: URINE BACTERIA RARE (NEG)
[2017-11-29 06:54] LABS: BARBITURATES, UR NEGATIVE (NEGATIVE); BENZODIAZEPINES, UR NEGATIVE (NEGATIVE); CREATININE,RANDOM URINE 35 mg/dL; PHENCYCLIDINE, UR NEGATIVE (NEGATIVE)
[2017-11-29 07:07] LABS: BASO # 0.02 K/mm3 (0.0-2.0); BASO % 0.2 % (0.0-3.0); EOS % 0.2 % (1.5-5.0); GRAN # 7.96 (1.4-6.5); GRAN % 76.2 % (50.0-68.0); LYMPH # 1.3 (1.2-3.4); LYMPH % 12.1 % (22.0-35.0); MEAN CELL VOLUME 88.8 fl (80.0-105.0); MEAN CORPUSCULAR HEMOGLOBIN 29.9 pg (25.0-35.0); MEAN CORPUSCULAR HGB CONC 33.7 g/dl (31.0-37.0); MEAN PLATELET VOLUME 11.6 fl (7.0-11.0); MONO # 1.2 (0.1-0.6); MONO % 11.3 % (1.0-6.0); RBC 4.01 10^6/uL (3.5-6.1); RED CELL DISTRIBUTION WIDTH 12.8 % (11.5-14.5); WHITE BLOOD COUNT 10.4 10^3/ul (4.5-11.0)
[2017-11-29 07:16] LABS: ALB/GLOB RATIO 1.2 (1.1-1.8); ALBUMIN 3.1 g/dL (3.0-4.8); CALCIUM 8.2 mg/dL (8.4-10.5)
[2017-11-29 08:02] LABS: CK MB% 0.1 % (2.5-3.0); CK-MB 73.3 ng/mL (0.0-3.6)
--- NOTE | 2017-11-29 11:14 | CT ---
Date of service: 11/28/2017 PROCEDURE: CT of the right leg without contrast HISTORY: r/o compartment syndrome COMPARISON: TECHNIQUE: Radiation dose: Total exam DLP = 880 mGy-cm. This CT exam was performed using one or more of the following dose reduction techniques: Automated exposure control, adjustment of the mA and/or kV according to patient size, and/or use of iterative reconstruction technique. The study was performed from the level of the right hip to the foot. FINDINGS: There is severe edema and swelling in the medial and posterior compartment of the upper thigh involving the obturator externus muscle, adductor yumiko and biceps femoris muscles. Edema is also seen in the fat planes between the hamstring muscle groups. This extends down to the popliteal fossa. Findings could be secondary to a compartment syndrome. Doppler ultrasound may be helpful for further evaluation. There is also subcutaneous edema. There is no evidence of hemorrhage There is no muscular swelling or edema below the knee. There are no bony abnormalities. The report concurs with the preliminary [employer] report IMPRESSION: There is severe edema and swelling in the medial and posterior compartment of the upper thigh involving the obturator externus muscle, adductor yumiko and biceps femoris muscles. Edema is also seen in the fat planes between the hamstring muscle groups.
--- NOTE | 2017-11-29 13:45 | PN ---
DATE: 11/29/2017 SUBJECTIVE: The patient is currently seen, referred to go down for an MRI of her right lower extremity. She is remaining on IV fluid hydration for acute rhabdomyolysis and acute renal failure. She still continues to complain of pain and swelling in the upper medial aspect of her right lower extremity. MEDICATIONS: Medication list reviewed. The patient is on Elavil, subcu heparin, Amerge, Percocet p.r.n., Maxalt, normal saline 150 mL an hour, and Topamax. PHYSICAL EXAMINATION: INTAKE AND OUTPUT: Intake 1920, output 1302. Weight stable at 115 pounds. VITAL SIGNS: Blood pressure is 151-160 systolic, diastolic 74-85. Temperature 98.1, pulse of 85 with a respiratory rate of 18. Pulse ox is 100%. HEENT: Shows her to be normocephalic, atraumatic. Conjunctivae are pink. Sclerae are nonicteric. NECK: Supple. No neck vein distention. CHEST: Clear to auscultation and percussion. No rales, rhonchi, or wheezing. CARDIOVASCULAR: Regular rate and rhythm without audible murmurs, rubs, or gallops. ABDOMEN: Soft. Bowel sounds normal. No rebound, guarding, or masses. EXTREMITIES: Show tenderness, fullness over her right medial thigh area. No lower extremity edema, otherwise. Distal lower extremity pulses remain 2+ bilaterally. LABORATORY DATA AND IMAGING: Lower extremity CT scan done through the Emergency Room yesterday showed severe edema and swelling in the medial and posterior compartment of the upper thigh involving the obturator externus muscle, adductor yumiko, and biceps femoris muscles. Edema is also seen in the fat planes between the hamstring muscle groups. Lower extremity ultrasound showed no evidence for DVT. CBC: White blood cell count down to 10.4 from 18,000, hemoglobin 12 with a platelet count of 172,000. Chemistries show a sodium of 142, potassium down to 3.7 with hydration. Carbon dioxide 24. BUN down to 34 from 40. Her baseline is less than 20. Creatinine is down to 1.6 from 2.6, baseline is less than 1. Liver enzymes remain elevated, AST 1118 with an ALT of 230. Hepatitis serologies are negative. Calcium 8.2. Phosphorus level was 3.4 with a magnesium level of 2.2. Uric acid level elevated at 8.3. CPK today is 52,966, down from 54,094. Bilirubin level is normal. Urine showed 4+ blood but only 1 to 3 red blood cells per high-power field, consistent with the diagnosis of rhabdomyolysis. Fractional excretion of sodium was greater than 1%. Toxicology screen was negative and serologies for hepatitis were all negative. Microbiology, blood cultures are negative at 24 hours. ASSESSMENT: 1. Acute renal failure secondary to acute rhabdomyolysis. This is in the setting of the patient having a 3-mile run and developing pain and tenderness in her muscles post the run. The patient did not have a fall or any known trauma to the muscle area in question. Her imaging studies, initial studies show significant swelling. She will be going down for an MRI to rule out any tear in the muscle or any other abnormal pathology. The patient will continue IV fluid hydration. Uric acid will likely fall with hydration and improvement in her renal parameters. Her urine pH is 6, so presently no need to alkanize the urine. I expect her BUN and creatinine to continue to improve as her CPK plateaus and starts dropping. I will add potassium to her IV fluids as her K level is now down to 3.7. 2. History of migraine headaches. The patient will continue present medication as she had been doing at home. PLAN: 1. Continue to monitor strict I's and O's, daily labs, and serial CPK evaluations. 2. Continue IV fluid hydration, large volume, and encourage p.o. fluid intake. 3. Obtain MRI of her right lower extremity to rule out any muscle tear or trauma to the muscle. 4. Reassured the patient that in all likelihood her BUN and creatinine will fall back to normal as her CPK level drops and she continues receiving adequate hydration for her acute rhabdomyolysis. Wilton Bergman MD
--- NOTE | 2017-11-29 14:19 | CP.PCM.PN ---
<Sarah Jeong - Last Filed: 11/29/17 15:40> Subjective - Date & Time of Evaluation Date of Evaluation: 11/29/17 Time of Evaluation: 14:13 - Subjective Subjective: Sarah Jeong, PGY2, Neurology Progress Note for Dr. Jesus: Patient seen and examined at bedside. No acute events overnight. This AM, patient continues to have right groin pain/swelling, states that she has mildly increased movement of her right leg, can wiggle her toes. She continues to have right lateral/dorsal foot numbness. Denies other focal deficits, urinary retention/incontinence, cyanosis, fevers, chills. Objective - Vital Signs/Intake and Output Vital Signs (last 24 hours): Temp Pulse Resp BP Pulse Ox 98.7 F 95 H 18 155/74 H 100 11/29/17 12:00 11/29/17 12:00 11/29/17 12:00 11/29/17 12:00 11/29/17 05:28 Intake and Output: 11/29/17 11/29/17 06:59 18:59 Intake Total 1920 Output Total 1302 Balance 618 - Medications Medications: Current Medications Amitriptyline HCl (Elavil) 20 mg PO HS [facility] Last Admin: 11/28/17 22:01 Dose: Not Given Amitriptyline HCl (Elavil) 20 mg PO HS [facility] Last Admin: 11/28/17 22:00 Dose: 20 mg Heparin Sodium (Porcine) (Heparin) 5,000 units SC Q8H [facility]; Protocol Last Admin: 11/29/17 11:23 Dose: 5,000 units Potassium Chloride 10 meq/ (Sodium Chloride) 1,005 mls @ 150 mls/hr IV .Q6H42M [facility] Rizatriptan Benzoate [Maxalt] 10 Mg ( Home Med) 10 mg PO TID PRN PRN Reason: Headache Non-Formulary Medication (Naratriptan Hcl [Amerge]) 2.5 mg PO DAILY PRN PRN Reason: Migraine headache Last Admin: 11/29/17 04:15 Dose: 2.5 mg Oxycodone/Acetaminophen (Percocet 5/325 Mg Tab) 1 tab PO QID PRN PRN Reason: Headache Stop: 12/01/17 09:44 Topiramate (Topamax) 50 mg PO DAILY [facility]; Protocol Last Admin: 11/29/17 11:29 Dose: Not Given Topiramate (Topamax) 25 mg PO HS [facility]; Protocol Last Admin: 11/28/17 22:01 Dose: 25 mg - Labs Labs: 11/29/17 06:00 11/29/17 06:00 PT 10.0 SECONDS (9.4-12.5) 11/27/17 20:30 INR 0.88 11/27/17 20:30 APTT 26.1 Seconds (25.1-36.5) 11/27/17 20:30 - Additional Findings Additional findings: - Constitutional Appears: Non-toxic, No Acute Distress - Head Exam Head Exam: ATRAUMATIC, NORMOCEPHALIC - Eye Exam Eye Exam: EOMI, PERRL. absent: Conjunctival injection, Nystagmus, Scleral icterus Pupil Exam: NORMAL ACCOMODATION, PERRL. absent: Irregular, Miosis, Mydriatic, Unequal - ENT Exam ENT Exam: Mucous Membranes Moist - Neck Exam Neck exam: Positive for: Full Rom - Respiratory Exam Respiratory Exam: Clear to Auscultation Bilateral, NORMAL BREATHING PATTERN. absent: Accessory Muscle Use, Rales, Rhonchi, Wheezes, Respiratory Distress, Stridor - Cardiovascular Exam Cardiovascular Exam: RRR, +S1, +S2. absent: Systolic Murmur - GI/Abdominal Exam GI & Abdominal Exam: Normal Bowel Sounds, Soft. absent: Distended, Firm, Guarding, Tenderness - Extremities Exam Extremities exam: Positive for: normal capillary refill, pedal pulses present. Negative for: calf tenderness, pedal edema Additional comments: Right thigh swelling/no erythema. Mildly tender to touch. - Back Exam Back exam: NORMAL INSPECTION. absent: CVA tenderness (L), CVA tenderness (R) - Neurological Exam Neurological exam: Alert, CN II-XII Intact, Oriented x3, Reflexes Normal Additional comments: +3/5 muscle strength RLE 5/5 muscle strength RUE, LUE, LLE 2/4 DTRs bilateral LEs + Loss of sensation R lateral and dorsal foot Sensation otherwise intact bilaterally + R thigh swollen, tender, mildly erythematous + R foot drop - Psychiatric Exam Psychiatric exam: Normal Affect, Normal Mood - Skin Skin Exam: Dry, Normal Color, Warm Assessment and Plan - Assessment and Plan (Free Text) Assessment: 52 year old female with PMH migraines, here for right thigh muscle tear with overlying edema causing neural compression, causing right leg weakness/paresthesia: - CT of RLE 11/28 shows severe edema and swelling in the medial and posterior compartments of upper thigh involving obturator internus, adductor yumiko and biceps femoris muscles, as well as edema in fat planes between the hamstring muscles extending down to the popliteal fossa. - RLE US neg for DVT - F.u MRI results of right thigh - Dr Pro and Surgery on board. F/u recs. - Neuro checks - Treat underlying rhabdomyolysis - Monitor Discussed case with Dr Jesus. <Daron Jesus - Last Filed: 11/30/17 17:57> Objective - Vital Signs/Intake and Output Vital Signs (last 24 hours): Temp Pulse Resp BP Pulse Ox 99.9 F H 91 H 18 167/90 H 98 11/30/17 17:35 11/30/17 17:35 11/30/17 17:35 11/30/17 17:35 11/30/17 05:47 Intake and Output: 11/30/17 11/30/17 06:59 18:59 Intake Total 1800 Output Total 900 Balance 900 - Medications Medications: Current Medications Amitriptyline HCl (Elavil) 20 mg PO HS [facility] Last Admin: 11/29/17 21:34 Dose: 20 mg Heparin Sodium (Porcine) (Heparin) 5,000 units SC Q8H [facility]; Protocol Last Admin: 11/30/17 15:07 Dose: 5,000 units Potassium Chloride 20 meq/Sodium Bicarbonate 100 meq/Dextrose 1,110 mls @ 150 mls/hr IV .Q7H24M [facility] Last Admin: 11/30/17 15:12 Dose: 150 mls/hr Rizatriptan Benzoate [Maxalt] 10 Mg ( Home Med) 10 mg PO TID PRN PRN Reason: Headache Non-Formulary Medication (Naratriptan Hcl [Amerge]) 2.5 mg PO DAILY PRN PRN Reason: Migraine headache Last Admin: 11/29/17 04:15 Dose: 2.5 mg Oxycodone/Acetaminophen (Percocet 5/325 Mg Tab) 1 tab PO QID PRN PRN Reason: Headache Stop: 12/01/17 09:44 Potassium Phos/Sodium Phos (Neutra-Phos) 1 pkt PO BID [facility] Topiramate (Topamax) 100 mg PO HS [facility]; Protocol - Labs Labs: 11/30/17 06:00 11/30/17 06:00 PT 10.0 SECONDS (9.4-12.5) 11/27/17 20:30 INR 0.88 11/27/17 20:30 APTT 26.1 Seconds (25.1-36.5) 11/27/17 20:30 Attending/Attestation - Attestation I have personally seen and examined this patient.: Yes I have fully participated in the care of the patient.: Yes I have reviewed all pertinent clinical information, including history, physical exam and plan: Yes Notes (Text): 11/30/17 17:56 I agree with the assessment and plan. The patient appears to be improving from early compartment syndrome. Neurologically, she is also improving. Consider EMG/NCS in two weeks if the weakness is still not fully improved.
--- NOTE | 2017-11-29 15:27 | CP.PCM.PN ---
Subjective - Date & Time of Evaluation Date of Evaluation: 11/29/17 Time of Evaluation: 15:16 - Subjective Subjective: Pt. denies significant pain. Pt states that she feels a little better and is now able to do a straight leg raise and wiggle her toes slightly. Still has numbness on lateral aspect of calf and dorsum of foot. Afebrile RLE: still obvious swelling about thigh but soft, NT knee without effusion tolerating active hip flexion without pain no pain with passive or active knee flexion/extension no pain with passive hip abductio/adduction Neuro: slight twitching of EHL no active ankle dorsiflexion 5/5 ankle plantarflexion decreased soft touch peroneal distribution (L5) bounding PT pulse +DP signal good cap refill in all toes MRI: reviewed MRI (awaiting reading) significant medial and posterior compartment edema no obvious bony abnormalities no obvious muscle belly/tendon tears Imp: Rhabdomolysis with compartment syndrome No orthopedic surgical intervention indicated at this time Recommend PT for ambulation Recommend AFO to prevent ankle contracture Had lengthy discussion with patient about nerve recovery and that there may be permanent damage. Patient understands. continue current care Objective - Vital Signs/Intake and Output Vital Signs (last 24 hours): Temp Pulse Resp BP Pulse Ox 98.7 F 95 H 18 155/74 H 100 11/29/17 12:00 11/29/17 12:00 11/29/17 12:00 11/29/17 12:00 11/29/17 05:28 Intake and Output: 11/29/17 11/29/17 06:59 18:59 Intake Total 1920 Output Total 1302 Balance 618 - Medications Medications: Current Medications Amitriptyline HCl (Elavil) 20 mg PO HS [facility] Last Admin: 11/28/17 22:01 Dose: Not Given Amitriptyline HCl (Elavil) 20 mg PO HS [facility] Last Admin: 11/28/17 22:00 Dose: 20 mg Heparin Sodium (Porcine) (Heparin) 5,000 units SC Q8H [facility]; Protocol Last Admin: 11/29/17 11:23 Dose: 5,000 units Potassium Chloride 10 meq/ (Sodium Chloride) 1,005 mls @ 150 mls/hr IV .Q6H42M [facility] Rizatriptan Benzoate [Maxalt] 10 Mg ( Home Med) 10 mg PO TID PRN PRN Reason: Headache Non-Formulary Medication (Naratriptan Hcl [Amerge]) 2.5 mg PO DAILY PRN PRN Reason: Migraine headache Last Admin: 11/29/17 04:15 Dose: 2.5 mg Oxycodone/Acetaminophen (Percocet 5/325 Mg Tab) 1 tab PO QID PRN PRN Reason: Headache Stop: 12/01/17 09:44 Topiramate (Topamax) 50 mg PO DAILY [facility]; Protocol Last Admin: 11/29/17 11:29 Dose: Not Given Topiramate (Topamax) 25 mg PO HS [facility]; Protocol Last Admin: 11/28/17 22:01 Dose: 25 mg - Labs Labs: 11/29/17 06:00 11/29/17 06:00 PT 10.0 SECONDS (9.4-12.5) 11/27/17 20:30 INR 0.88 11/27/17 20:30 APTT 26.1 Seconds (25.1-36.5) 11/27/17 20:30
--- NOTE | 2017-11-29 15:28 | HP ---
HISTORY OF PRESENT ILLNESS: The patient is a 52-year-old female, who was brought to the emergency room via squad after arising from a nap and being unable to stand on her right leg. The patient states she was out for a jog, returned home, took a nap on the sofa. When she awoke, she attempted to stand and her right leg collapsed. The patient fell striking the right side of her head on the floor. She called to her mother for assistance, who called the squad. The patient was brought to the emergency room. She did not complain of pain. However, she feels she has no feeling, no tactile sensation in her right lower extremity. PAST MEDICAL HISTORY: Her past medical history is positive for chronic migraine headaches. She is otherwise healthy. SOCIAL HISTORY: She never smoked. She is a nonalcoholic drinker. ALLERGIES: SHE IS KNOWN TO BE ALLERGIC TO BACTRIM, WHICH CAUSED A RASH IN THE PAST. MEDICATIONS AT THE TIME OF ADMISSION: Included Topamax 100 mg at bedtime, Elavil 20 mg at bedtime, Amerge 2.5 mg p.o. p.r.n. migraine and Percocet 5/325 one tablet four times a day p.r.n. migraine. REVIEW OF SYSTEMS: Otherwise unremarkable. PHYSICAL EXAMINATION: VITAL SIGNS: Her blood pressure is 126/67, heart rate is 94 and the patient is afebrile. HEENT: Head, eyes, ears, nose and throat are remarkable for a small pink abrasion lateral to the right eyebrow. NECK: Supple with no lymphadenopathy. No goiter. LUNGS: Clear to auscultation and percussion. HEART: Regular. No murmurs are appreciated. ABDOMEN: Soft and nontender. EXTREMITIES: Free of cyanosis, clubbing or edema. However, there was a swelling in the medial proximal right thigh. It is firm on palpation. Nontender. There is no erythema. No ecchymoses. This probably represents a hematoma versus torn muscle. NEUROLOGICAL: The patient denies tactile sensation in the right lower extremity except for the distal lateral right foot where the patient cannot feel light touch. There is no tenderness on flexion, extension of the knee. The patient is unable to adduct or abduct or flex the right hip. SKIN: Warm and dry. There are no active lesions. LABORATORY DATA: Laboratory studies showed the white blood cell count to be elevated at 18. The hemoglobin and hematocrit are 14.7 and 44.8 respectively, platelet count is 262. Granulocytes are elevated at 15.63. Absolute number percentage is 87%. Coagulation studies are normal. Serum chemistries revealed sodium of 137, potassium 4.6, BUN is elevated at 44, creatinine 1.9, glucose is 123, AST is elevated at 822, ALT is elevated at 161. Total creatine kinase is 54,094. CT of the head is unremarkable. EKG shows normal sinus rhythm. Chest x-ray shows no acute disease. IMPRESSION: So the patient is admitted with diagnoses of acute renal failure, abnormal liver enzymes, rhabdomyolysis. She is started on intravenous fluids. Orthopedic consultation is requested. The patient will be followed closely and reevaluated in the morning. Sacha Hinton MD MTDNajma
--- NOTE | 2017-11-29 17:43 | MRI ---
Date of service: 11/29/2017 PROCEDURE: MRI of the right lower extremity without contrast HISTORY: rule out right thigh tendor tear COMPARISON: CT scan 11/28/2017 TECHNIQUE: MRI of the right hip and right thigh were performed in multiple planes using multiple pulse sequences FINDINGS: There is extensive edema and swelling primarily in the adductor muscle groups including the adductor yumiko, obturator externus and piriformis muscles. There is also some edema in the gluteal muscles and the right pelvic floor. There is a large amount of fluid in the fascial planes between these muscle groups as well as the quadriceps muscles.. There is also involvement of the hamstring muscles to a lesser extent. There also a large amount of subcutaneous edema especially in the medial thigh. There is no evidence of hemorrhage. There is no obvious tendon tear. Findings most likely represent rhabdomyolysis. There is no obvious vascular compression Findings were discussed with Dr. Bharat Hinton at 5:30 p.m. 11/29/2017 IMPRESSION: Edema and swelling of multiple muscle groups around the right hip and proximal thigh as well as the pelvic floor. Findings most consistent with rhabdomyolysis. There is no obvious vascular compression.
--- NOTE | 2017-11-29 18:19 | CP.PCM.PN ---
<Abdoulaye Quintero - Last Filed: 11/29/17 18:24> Subjective - Date & Time of Evaluation Date of Evaluation: 11/29/17 Time of Evaluation: 07:30 - Subjective Subjective: Patient seen and examined with Dr. Wise. Patient reports feeling a litter better. Denies worsening pain. Able to actively flex at hip joint. Weakness with adduction. Complaining of decrease sensation along lateral portion of lower leg. Objective - Vital Signs/Intake and Output Vital Signs (last 24 hours): Temp Pulse Resp BP Pulse Ox 98.7 F 95 H 18 155/74 H 100 11/29/17 12:00 11/29/17 12:00 11/29/17 12:00 11/29/17 12:00 11/29/17 05:28 Intake and Output: 11/29/17 11/29/17 06:59 18:59 Intake Total 1920 Output Total 1302 Balance 618 - Medications Medications: Current Medications Amitriptyline HCl (Elavil) 20 mg PO [facility] Last Admin: 11/28/17 22:01 Dose: Not Given Amitriptyline HCl (Elavil) 20 mg PO [facility] Last Admin: 11/28/17 22:00 Dose: 20 mg Heparin Sodium (Porcine) (Heparin) 5,000 units SC Q8H [facility]; Protocol Last Admin: 11/29/17 11:23 Dose: 5,000 units Potassium Chloride 10 meq/ (Sodium Chloride) 1,005 mls @ 150 mls/hr IV .Q6H42M [facility] Last Admin: 11/29/17 16:07 Dose: 150 mls/hr Rizatriptan Benzoate [Maxalt] 10 Mg ( Home Med) 10 mg PO TID PRN PRN Reason: Headache Non-Formulary Medication (Naratriptan Hcl [Amerge]) 2.5 mg PO DAILY PRN PRN Reason: Migraine headache Last Admin: 11/29/17 04:15 Dose: 2.5 mg Oxycodone/Acetaminophen (Percocet 5/325 Mg Tab) 1 tab PO QID PRN PRN Reason: Headache Stop: 12/01/17 09:44 Topiramate (Topamax) 50 mg PO DAILY [facility]; Protocol Last Admin: 11/29/17 11:29 Dose: Not Given Topiramate (Topamax) 25 mg PO [facility]; Protocol Last Admin: 11/28/17 22:01 Dose: 25 mg - Labs Labs: 11/29/17 06:00 11/29/17 06:00 PT 10.0 SECONDS (9.4-12.5) 11/27/17 20:30 INR 0.88 11/27/17 20:30 APTT 26.1 Seconds (25.1-36.5) 11/27/17 20:30 - Constitutional Appears: No Acute Distress - Head Exam Head Exam: NORMOCEPHALIC - Eye Exam Eye Exam: Normal appearance - ENT Exam ENT Exam: Mucous Membranes Moist - Cardiovascular Exam Cardiovascular Exam: +S1, +S2 - GI/Abdominal Exam GI & Abdominal Exam: Soft - Extremities Exam Extremities Exam: Normal Inspection. absent: Calf Tenderness, Pedal Edema, Tenderness Additional comments: bounding PT pulse +DP signal +popliteal/femoral pulse decrease sensation along lateral aspect of leg - Neurological Exam Neurological Exam: Alert, Awake, Oriented x3 - Skin Skin Exam: Dry, Warm Assessment and Plan - Assessment and Plan (Free Text) Assessment: 52F with rhabdomyolysis and ?early comparment syndrome Plan: No indication for acute surgical intervention at this present time F/u MRI results F/u orthopedic recs Recommend aggressive IVF and PO hydration for rhabdomyolysis F/u nephrology recs D/w Dr. Billie Zacarias PGY3 <Tom Wise - Last Filed: 12/02/17 16:34> Objective - Vital Signs/Intake and Output Vital Signs (last 24 hours): Temp Pulse Resp BP Pulse Ox 98.8 F 100 H 19 142/74 96 12/02/17 12:00 12/02/17 14:00 12/02/17 12:00 12/02/17 12:00 12/02/17 09:00 Intake and Output: 12/02/17 12/02/17 06:59 18:59 Intake Total 3251 Balance 3251 - Medications Medications: Current Medications Amitriptyline HCl (Elavil) 20 mg PO HS DAY Last Admin: 12/01/17 21:16 Dose: 20 mg Heparin Sodium (Porcine) (Heparin) 5,000 units SC Q8H [facility]; Protocol Last Admin: 12/02/17 10:19 Dose: 5,000 units Potassium Chloride 20 meq/Sodium Bicarbonate 50 meq/Dextrose 1,060 mls @ 150 mls/hr IV .Q7H4M [facility] Last Admin: 12/02/17 14:54 Dose: 150 mls/hr Rizatriptan Benzoate [Maxalt] 10 Mg ( Home Med) 10 mg PO TID PRN PRN Reason: Headache Non-Formulary Medication (Naratriptan Hcl [Amerge]) 2.5 mg PO DAILY PRN PRN Reason: Migraine headache Last Admin: 12/02/17 14:31 Dose: 2.5 mg Potassium Phos/Sodium Phos (Neutra-Phos) 1 pkt PO BID [facility] Last Admin: 12/02/17 10:19 Dose: 1 pkt Topiramate (Topamax) 100 mg PO HS [facility]; Protocol Last Admin: 12/01/17 22:00 Dose: 100 mg - Labs Labs: 12/02/17 06:30 12/02/17 06:30 PT 10.0 SECONDS (9.4-12.5) 12/02/17 06:30 INR 0.87 12/02/17 06:30 APTT 26.7 Seconds (25.1-36.5) 12/02/17 06:30 Attending/Attestation - Attestation I have personally seen and examined this patient.: Yes I have fully participated in the care of the patient.: Yes I have reviewed all pertinent clinical information, including history, physical exam and plan: Yes Notes (Text): Pt was seen and examined at bedside Agree with above note and assessment Pt with muscles rupture with hematoma with rhabdomyolysis C/w IV hydration No General surgery intervention required at present c.w current mx Plan d.w pt in detail\ Risk and benefit explained in detail.
[2017-11-30 06:24] LABS: BASO # 0.04 K/mm3 (0.0-2.0); BASO % 0.5 % (0.0-3.0); EOS # 0.2 (0.0-0.7); EOS % 2.1 % (1.5-5.0); GRAN # 3.79 (1.4-6.5); GRAN % 50.2 % (50.0-68.0); LYMPH # 2.7 (1.2-3.4); LYMPH % 35.7 % (22.0-35.0); MEAN CELL VOLUME 89.7 fl (80.0-105.0); MEAN CORPUSCULAR HEMOGLOBIN 29.7 pg (25.0-35.0); MEAN CORPUSCULAR HGB CONC 33.1 g/dl (31.0-37.0); MEAN PLATELET VOLUME 11.1 fl (7.0-11.0); MONO # 0.9 (0.1-0.6); MONO % 11.5 % (1.0-6.0); RBC 3.3 10^6/uL (3.5-6.1); WHITE BLOOD COUNT 7.6 10^3/ul (4.5-11.0)
[2017-11-30 06:28] LABS: HEMOGLOBIN 9.8 g/dL (12.0-16.0)
[2017-11-30 07:17] LABS: ALB/GLOB RATIO 1.1 (1.1-1.8); ALBUMIN 2.7 g/dL (3.0-4.8); ALT/SGPT 183 U/L (7-56); AST/SGOT 707 U/L (14-36); BLOOD UREA NITROGEN 13 mg/dL (7-21); CALCIUM 8.1 mg/dL (8.4-10.5); GFR NON-AFRICAN AMERICAN > 60
[2017-11-30 11:26] LABS: CK MB% 0.1 % (2.5-3.0); CK-MB 17.8 ng/mL (0.0-3.6)
[2017-11-30] MEDS ORDERED: [UNRECOGNIZED DRUG - OTHER] IV SCH (13:18)
[2017-11-30] MEDS ORDERED: POTASSIUM CHLORIDE IV SCH (13:18)
[2017-11-30] MEDS ORDERED: SODIUM BICARBONATE IV SCH (13:18)
[2017-11-30] MEDS ORDERED: DEXTROSE 5% IV SCH (13:18)
[2017-11-30 15:07] LABS: CK-MB 14.3 ng/mL (0.0-3.6)
[2017-11-30] MEDS: [UNRECOGNIZED DRUG - OTHER] IV SCH ×2 (15:12→21:31)
[2017-11-30] MEDS: DEXTROSE 5% IV SCH ×2 (15:12→21:31)
[2017-11-30] MEDS: SODIUM BICARBONATE IV SCH ×2 (15:12→21:31)
[2017-11-30] MEDS: POTASSIUM CHLORIDE IV SCH ×2 (15:12→21:31)
--- NOTE | 2017-11-30 18:02 | PN ---
DATE: 11/30/2017 SUBJECTIVE: The patient was seen sitting in bed. She is trying to eat lunch. She complains of pain in her right leg. She complains of swelling of the right leg. She complains of tingling in her toes of the right foot. She denies any weakness. She denies any fever or chills. She denies any shortness of breath. PHYSICAL EXAMINATION GENERAL: Young woman sitting in bed. VITAL SIGNS: Blood pressure 154/85, heart rate 100, respiratory rate 20, and temperature 98.6. HEENT: Normocephalic, atraumatic, positive pallor. NECK: Supple, no JVD. LUNGS: Bilateral equal air entry, bilateral equal expansion. CARDIAC: S1 and S2, regular rate and rhythm, no murmur, no rub. ABDOMEN: Soft, nondistended, and nontender. Bowel sounds present. EXTREMITIES: Visible swelling of the whole of the right leg, minimal bruise on the lateral aspect of the right thigh. INTAKE AND OUTPUT: 2760/2650 LABORATORY DATA: WBC 7.6, hemoglobin 9.8, hematocrit 29.6, and platelets 160. Sodium 143, potassium 3.6, chloride 117, CO2 of 26. BUN 13, creatinine 0.9. Glucose 95. Calcium 8.1, phosphorus 2, magnesium 2. AST 707, ALT 183. CPK 28,300, albumin 2.7, globulin 2.4. Urinalysis, yellow clear, pH 6, specific gravity less than 1.005, protein negative, glucose negative, ketones negative, blood large, rbc's 1 to 3, urine sodium 21, urine creatinine 35. Toxicology negative. Alcohol less than 10. Hepatitis negative. MRI of the hip, edema and swelling of multiple muscle groups around the right hip and proximal thigh and pelvic floor consistent with rhabdomyolysis. No vascular compression. Lower extremity MRI, CT of the lower extremity, severe edema and swelling of the medial and the posterior compartment of the upper thigh involving the obturator externus muscle, adductor yumiko and biceps femoralis muscle. Edema is also seen in the fat planes between the hamstring muscle groups. CURRENT MEDICATIONS: Elavil 20, heparin 5000 every 8 hours, naratriptan, Percocet, normal saline with 10 mEq of KCl at 150, Topamax. ASSESSMENT: 1. Acute rhabdomyolysis, status post 3-mile run, muscle injury, status post fall on the same side. 2. Hypokalemia. 3. Hypophosphatemia. 4. Muscle edema. 5. Elevated liver function test secondary to rhabdomyolysis. PLAN: 1. Alkalinized urine. 2. Increase potassium supplementation. 3. Repeat urinalysis. 4. Monitor serial CPK. 5. Monitor serial H and H. 6. Monitor thigh circumference, watch for compartment syndrome. Rosa Ji MD [facility] # [id number]
[2017-11-30] MEDS: Potassium & Sodium Phosphate PO SCH (18:23)
[2017-12-01 06:25] LABS: PH,URINE 8.5 (4.7-8.0); URINE BILIRUBIN NEGATIVE (NEGATIVE); URINE BLOOD TRACE-INTACT (NEGATIVE); URINE GLUCOSE (UA) NEGATIVE (NEGATIVE); URINE LEUKOCYTE ESTERASE NEGATIVE Leu/uL (NEGATIVE); URINE PROTEIN NEGATIVE mg/dL (<30 mg/dL); URINE UROBILINOGEN 0.2 E.U./dL (<1 E.U./dL)
[2017-12-01 06:31] LABS: URINE APPEARANCE CLEAR (CLEAR); URINE COLOR YELLOW (YELLOW)
[2017-12-01 06:45] LABS: URINE WBC 0 - 2 /hpf (0-6)
[2017-12-01] MEDS: POTASSIUM CHLORIDE IV SCH ×3 (06:52→18:07)
[2017-12-01] MEDS: DEXTROSE 5% IV SCH ×3 (06:52→18:07)
[2017-12-01] MEDS: [UNRECOGNIZED DRUG - OTHER] IV SCH ×3 (06:52→18:07)
[2017-12-01] MEDS: SODIUM BICARBONATE IV SCH ×3 (06:52→18:07)
[2017-12-01 06:53] LABS: BASO # 0.04 K/mm3 (0.0-2.0); BASO % 0.5 % (0.0-3.0); EOS # 0.2 (0.0-0.7); EOS % 2.7 % (1.5-5.0); GRAN # 3.26 (1.4-6.5); GRAN % 44.5 % (50.0-68.0); HEMOGLOBIN 9.4 g/dL (12.0-16.0); LYMPH # 3.4 (1.2-3.4); LYMPH % 45.6 % (22.0-35.0); MEAN CELL VOLUME 89.2 fl (80.0-105.0); MEAN CORPUSCULAR HEMOGLOBIN 29.8 pg (25.0-35.0); MEAN CORPUSCULAR HGB CONC 33.5 g/dl (31.0-37.0); MEAN PLATELET VOLUME 10.7 fl (7.0-11.0); MONO # 0.5 (0.1-0.6); MONO % 6.7 % (1.0-6.0); RBC 3.15 10^6/uL (3.5-6.1); RED CELL DISTRIBUTION WIDTH 12.9 % (11.5-14.5); WHITE BLOOD COUNT 7.3 10^3/ul (4.5-11.0)
[2017-12-01 07:09] LABS: ALB/GLOB RATIO 1.3 (1.1-1.8); ALBUMIN 2.7 g/dL (3.0-4.8); ALT/SGPT 171 U/L (7-56); AST/SGOT 532 U/L (14-36); BLOOD UREA NITROGEN 9 mg/dL (7-21); CALCIUM 8.2 mg/dL (8.4-10.5); GFR NON-AFRICAN AMERICAN > 60
--- NOTE | 2017-12-01 08:33 | PN ---
DATE: 11/30/2017 DAILY PROGRESS NOTE SUBJECTIVE: The patient is a 52-year-old female with a history of chronic migraine headaches who was admitted with rhabdomyolysis. The patient apparently had returned [place] [facility] [place] took a nap on the sofa and when she awoke, could not stand on her right leg, she collapsed striking the right side of her face on the floor. She did not complain of any pain. She did not admit to any trauma. PHYSICAL EXAMINATION: EXTREMITIES: There was a baseball size, firm nodule in the proximal medial thigh. It was nontender on palpation. The right lower extremity was swollen. She did have dorsal pedal pulses, however, tactile sensation was lost down the right leg. During her hospital stay, the patient was treated with IV fluids and she responded well. When seen today, she is sitting at bedside. The right leg is still swollen, however, the palpable mass in the proximal medial right thigh seemed softer and smaller. The remainder of her exam is unremarkable. She still was not able to suggest any possible etiology to the rhabdomyolysis. LABORATORY STUDIES: This morning show the BUN and creatinine to be now normal at 13 and 0.9. On admission, it was elevated at 40 and 2.6. The potassium was 7.8 on admission, it is now normalized. Total CK on admission was 35,641 that is now down to 20,690. ASSESSMENT AND PLAN: We are to begin physical therapy on the patient. Consultations from Dr. Ji, the fixed income director; Dr. Pro, the orthopedist is appreciated. Plan is to begin physical therapy. Consider, perhaps a subacute rehab facility. Sacha Hinton MD
[2017-12-01 10:16] LABS: CK-MB 7.3 ng/mL (0.0-3.6)
[2017-12-01] MEDS: Potassium & Sodium Phosphate PO SCH ×2 (10:23→18:07)
[2017-12-01] MEDS ORDERED: Potassium Chloride 20 mEq/15 ml LIQ UD PO STA (20:46)
[2017-12-01] MEDS ORDERED: Potassium Chloride 40 mEq/30 ml LIQ UD PO STA (20:50)
[2017-12-02] MEDS: POTASSIUM CHLORIDE IV SCH ×5 (01:00→20:50)
[2017-12-02] MEDS: SODIUM BICARBONATE IV SCH ×5 (01:00→20:50)
[2017-12-02] MEDS: DEXTROSE 5% IV SCH ×5 (01:00→20:50)
[2017-12-02] MEDS: [UNRECOGNIZED DRUG - OTHER] IV SCH ×3 (01:00→10:57)
--- NOTE | 2017-12-02 02:26 | PN ---
DATE: 12/01/2017 SUBJECTIVE: The patient is lying in bed. She is awake. She is alert. She is comfortable. She complains of swelling of the right leg. She complains of pain and tightness in the right thigh. PHYSICAL EXAMINATION: GENERAL: Young woman sitting in bed. VITAL SIGNS: Blood pressure 144/74, heart rate 88, respiratory rate 21, temperature 98.5. HEENT: Normocephalic, atraumatic, positive pallor. NECK: Supple, no JVD. LUNGS: Bilateral equal air entry, bilateral equal expansion. CARDIAC: S1 and S2, regular rate and rhythm, no murmur, no rub. ABDOMEN: Soft, nondistended, nontender. Bowel sounds present. EXTREMITIES: Significant swelling of the right lower extremity, right thigh, right calf. INTAKE AND OUTPUT: 5160/3800 LABORATORY DATA: WBC 7, hemoglobin 9.4, hematocrit 28, platelet 183. Sodium 140, potassium 3.3, chloride 110, CO2 of 29, BUN 9, creatinine 0.7. Glucose 105. Calcium 8.2, phosphorous 2.8, magnesium 1.6. AST 532, ALT 171. CPK 20,690. Total protein 4.8, albumin 2.7, globulin 2.1. Urinalysis, yellow, clear, pH 8.5, specific gravity 1.010, blood trace intact, rbc's 1 to 3. CURRENT MEDICATIONS: Amitriptyline, heparin subcu, naratriptan, Neutra-Phos one packet b.i.d., D5W with 2 amps of bicarb with 20 mEq of KCL at 150. ASSESSMENT: 1. Severe acute rhabdomyolysis. 2. Hypokalemia. 3. Hypophosphatemia. 4. Resolved acute kidney injury. 5. Depression. PLAN: 1. Continue IV fluids with sodium bicarbonate. 2. Continue Neutra-Phos. 3. KCL 40 mEq p.o. x1 dose. 4. Check iron stores. Rosa Ji MD
--- NOTE | 2017-12-02 02:35 | PN ---
DATE: 12/01/2017 DAILY PROGRESS NOTE SUBJECTIVE: The patient was seen this afternoon in room 268, bed 2. Sitting at the edge of the bed, comfortable, awake, alert, in good spirits, in no acute distress. Pain has markedly subsided. She is able to stand and walk. Significant swelling of the right thigh and right lower extremity continues. CT scans, MRI reports were noted. I explained to the patient her BUN and creatinine have returned to normal. Her CPK is 16,000. She is doing well and may be ready for discharge to home as early as tomorrow. She then told me that she may elect to go to the Transitional Care Unit for additional days of subacute rehab. I told her, to a large part, this depends on her ability at home and her help available. She lives in a two-family home. Her mother lives in the other apartment. Her mother is fully able and ambulatory, drives and would be able to help her. I will check with physical therapist, look at tomorrow morning's labs and we will make that decision tomorrow as to discharge or TCU. Alfredo Hinton MD [facility]
[2017-12-02 07:08] LABS: BASO # 0.04 K/mm3 (0.0-2.0); BASO % 0.5 % (0.0-3.0); EOS # 0.3 (0.0-0.7); EOS % 3.6 % (1.5-5.0); GRAN # 3.56 (1.4-6.5); GRAN % 45.4 % (50.0-68.0); HEMOGLOBIN 9.5 g/dL (12.0-16.0); LYMPH # 3.4 (1.2-3.4); MEAN CELL VOLUME 89.5 fl (80.0-105.0); MEAN CORPUSCULAR HEMOGLOBIN 30.4 pg (25.0-35.0); MEAN CORPUSCULAR HGB CONC 33.9 g/dl (31.0-37.0); MEAN PLATELET VOLUME 10.6 fl (7.0-11.0); MONO # 0.6 (0.1-0.6); MONO % 7.5 % (1.0-6.0); RBC 3.13 10^6/uL (3.5-6.1); RED CELL DISTRIBUTION WIDTH 12.9 % (11.5-14.5); WHITE BLOOD COUNT 7.8 10^3/ul (4.5-11.0)
[2017-12-02 07:21] LABS: INR 0.87; PARTIAL THROMBOPLASTIN TIME 26.7 Seconds (25.1-36.5)
[2017-12-02 07:22] LABS: IRON 100 ug/dL (45-180)
[2017-12-02 07:35] LABS: ALB/GLOB RATIO 1.2 (1.1-1.8); ALBUMIN 2.8 g/dL (3.0-4.8); ALT/SGPT 178 U/L (7-56); AST/SGOT 477 U/L (14-36); BLOOD UREA NITROGEN 10 mg/dL (7-21); CALCIUM 8.5 mg/dL (8.4-10.5); GFR NON-AFRICAN AMERICAN > 60
[2017-12-02 07:37] LABS: % IRON SATURATION 47 % (20-55); TOTAL IRON BINDING CAPACITY 215 ug/dL (265-497)
[2017-12-02 08:16] LABS: CK-MB 3.8 ng/mL (0.0-3.6)
[2017-12-02] MEDS: Potassium & Sodium Phosphate PO SCH ×2 (10:19→17:28)
[2017-12-02 12:59] LABS: FERRITIN 68.6 ng/mL
[2017-12-02] MEDS: NARATRIPTAN HCL 2.5 MG PO PRN (14:31)
[2017-12-02] MEDS: [UNRECOGNIZED DRUG - OTHER] IV SCH ×2 (14:54→20:50)
[2017-12-02] MEDS ORDERED: NARATRIPTAN HCL 2.5 MG PO PRN (17:36)
--- NOTE | 2017-12-02 18:21 | PN ---
DATE: 12/02/2017 SUBJECTIVE: The patient is seen lying in bed. She is awake. She is alert. She is comfortable. She feels better. Her right lower extremity is less swollen. She is able to walk. PHYSICAL EXAMINATION: GENERAL: Middle-aged lady, lying in bed. VITAL SIGNS: Blood pressure 142/74, heart rate 105, respiratory rate 19, temperature 98.8. HEENT: Normocephalic, atraumatic, positive pallor. NECK: Supple, no JVD. LUNGS: Bilateral equal air entry, bilateral equal expansion. CARDIAC: S1 and S2, regular rate and rhythm, no murmur, no rub. ABDOMEN: Soft, nondistended, nontender, bowel sounds present. EXTREMITIES: Swelling of the right lower extremity reduced in size. INTAKE AND OUTPUT: 4211/915. LABORATORY DATA: WBC 7.8, hemoglobin 9.5, hematocrit 28, platelets 201. Sodium 141, potassium 3.5, chloride 108, CO2 of 31, BUN 10, creatinine 0.8, glucose 105, calcium 8.5, phosphorus 4.1, magnesium 1.6. Iron saturation 47, iron 100, ferritin 68.6. CURRENT MEDICATIONS: Elavil, heparin, PhosLo, D5W with 2 amps of bicarb with 20 mEq of KCl at 150, Maxalt, Topamax. ASSESSMENT: 1. Acute rhabdomyolysis, slowly improving. 2. Blunt muscle injury to the right lower extremity. 3. Hypokalemia. 4. Resolved acute kidney injury. PLAN: 1. Change IV fluids to D5W with 1 amp of sodium bicarbonate with 20 mEq of KCl at 150. 2. Push p.o. protein and potassium intake. 3. Continue Neutra-Phos. 4. Check daily labs. 5. Hopefully can be discharged on Tuesday. Rosa iJ MD
[2017-12-03] MEDS: SODIUM BICARBONATE IV SCH ×2 (03:30→06:36)
[2017-12-03] MEDS: [UNRECOGNIZED DRUG - OTHER] IV SCH ×2 (03:30→06:36)
[2017-12-03] MEDS: DEXTROSE 5% IV SCH ×2 (03:30→06:36)
[2017-12-03] MEDS: POTASSIUM CHLORIDE IV SCH ×2 (03:30→06:36)
[2017-12-03 05:37] VITALS: TEMP 98.6; O2SAT 98
[2017-12-03] MEDS: Potassium & Sodium Phosphate PO SCH (09:45)
[2017-12-03 10:56] VITALS: BP 141/76; PULSE 97; RESP 18
--- NOTE | 2017-12-03 19:45 | PN ---
DATE: 12/02/2017 SUBJECTIVE: The patient was seen this Tuesday morning in room 268, bed 2. She is resting comfortably in bed, having been admitted with swelling in her leg after a fall at home after episode of jogging with marked amount of hematoma and swelling in the upper calf as noted on CT scan. Today, in bed, she is more comfortable, able to get out of bed and stand by herself. Review of the lab shows improvement in her BUN and creatinine and CPK is coming down. I spoke with the patient about her progress. Initially, we were planning for discharge to home and then she was offered subacute rehab, which she is planning to decline because of her already active home activity level being a regular jogger and therefore, will do physical therapy at home on her own, which I would tend to agree with. We will make a final decision tomorrow. I will defer to Ren[facility] who is requesting that the continue on a bicarb drip at least for one more day. Alfredo Hinton MD
--- NOTE | 2017-12-04 13:53 | DS ---
HISTORY OF PRESENT ILLNESS: This is a 52-year-old woman who was admitted to the Acute Care Facility at [facility]. After going out jogging, she came home, reportedly had a fall at home, and developed pain and swelling in the upper right thigh and groin area, noticed the swelling worsening and came to the emergency room. Venous Dopplers were negative for DVT, but CT scan was done. Orthopedic consult was called because extraordinarily large amount of fluid noted between the muscle planes in the floor of the pelvis and right thigh. LABORATORY DATA: The patient's BUN and creatinine were elevated. Her CPK was over 50,000. She was admitted. Renal customer care consultant was called. She was treated with IV alkalized fluids. Physical therapy was ordered. Over the following days, she was able to stand. CPK dropped to 16,000. BUN and creatinine came into the normal range. IV fluids were continued. The patient did well. She entertained the idea of subacute rehab when that was offered to her by staff but later declined. I spoke with her today, Tuesday, the day of discharge, and she felt that since she is quite young and active avid runner, she would be able to manage her physical therapy at home, and if in fact needed therapist professional help, would seek outpatient therapy. I ambulated with her in her room today. Her balance was normal. Gait was off because of the continued swelling in the right lower extremity, but she was stable. Hemodynamically stable. Gait and balance stable and ready for discharge to home. FINAL DISCHARGE DIAGNOSES: 1. Fall with large hematoma on the right thigh. 2. Rhabdomyolysis. 3. Acute kidney injury. 4. History of migraines. The patient is to see us in the office in approximately 4 days, and we will discuss work, disability papers and return to work. I would estimate approximately 1 week. Alfredo Hinton MD
== END 2017-12-03 13:46 | disposition home or self-care (01) | DRG 683 ==
LOC: ED 19:56 → ERH 11-28 00:01 → 2RNO 11-28 19:28
PROVIDERS: ADMIT Internal Medicine; ATTEND Internal Medicine
DX: N17.9 Acute kidney failure, unspecified (principal); M62.82 Rhabdomyolysis; T79.A0XA Compartment syndrome, unspecified, initial encounter; S76.912A Strain of unspecified muscles, fascia and tendons at thigh level, left thigh, initial encounter; E87.5 Hyperkalemia; E87.6 Hypokalemia; E83.39 Other disorders of phosphorus metabolism; F32.9 Major depressive disorder, single episode, unspecified; G43.909 Migraine, unspecified, not intractable, without status migrainosus; I34.1 Nonrheumatic mitral (valve) prolapse; M79.89 Other specified soft tissue disorders; W19.XXXA Unspecified fall, initial encounter; Y93.02 Activity, running; Y92.009 Unspecified place in unspecified non-institutional (private) residence as the place of occurrence of the external cause; Z80.0 Family history of malignant neoplasm of digestive organs; Z88.3 Allergy status to other anti-infective agents